=== PATIENT | male | born 1945 | race Caucasian/White ===

== ENCOUNTER 2016-07-02 05:59 | Inpatient (IN) | payer MEDICARE ==
[2016-07-02] MEDS ORDERED: MORPHINE SULFATE 15 MG TABLET.SA PO PRN (06:00)
[2016-07-02] MEDS ORDERED: ceFAZolin SODIUM 1 GM VIAL IV PRN (06:00)
[2016-07-02] MEDS ORDERED: ROPIVACAINE HCL/PF 100 MG, KETOROLAC TROMETHAMINE 30 MG, EPINEPHrine 0.2 MG in NORMAL S... IJ PRN (06:00)
[2016-07-02] MEDS ORDERED: TRANEXAMIC ACID 1,000 MG in NORMAL SALINE 100 ML IV PRN (06:00)
--- OUTSIDE RECORDS SUMMARY | 2016-07-02 06:04 | XMS REPORT | Continuity of Care Document ---
:1945 Author Organization [facility] ([facility]) Address [place] [address] Phone [phone] Care Team Providers Name Role Phone [phone], Self Referral Primary Care Provider [phone] Source Comments This disclosure is being made pursuant to the Care Everywhere program, applicable federal and state laws, and may not contain all informaitonavailable regarding this patient.[facility] ([facility]) Active Allergies and Adverse Reactions Allergen Noted Date Severity Reactions Comments Oxycodone-Acetaminophen 11/13/2015 Pruritus Current Medications Prescription Sig. Disp. Refills Start Date End Date Status losartan 100 mg tablet Take 100 mg by mouth Active daily. amLODIPine 2.5 mg tablet Take 2.5 mg by mouth Active daily. metFORMIN 500 mg tablet Take 500 mg by mouth Active 2 times daily with meals. celecoxib 200 mg capsule Take 200 mg by mouth Active 2 times daily. aspirin 325 mg tablet Take 325 mg by mouth Active daily. HYDROcodone-acetaminophe Take 1 capsule by Active n 5-500 mg per capsule mouth every 6 hours as needed. furosemide 40 mg tablet Take 40 mg by mouth Active daily. oxymetazoline 0.05% Use 2 Sprays into Active nasal spray both nostrils as needed. albuterol 90 Use 2 Puffs by Active mcg/Actuation inhaler inhalation every 6 hours as needed. MOMETASONE FUROATE Active (ASMANEX HFA INH) fexofenadine 180 mg Take 180 mg by mouth Active tablet daily. Active Problems Problem Noted Date Benign essential HTN 09/20/2013 PVD (peripheral vascular disease) Dyslipidemia Carotid occlusion, bilateral Social History Tobacco Use Types Packs/Day Years Used Date Current Every Day Smoker Cigarettes 1 Tobacco Cessation:Ready to Quit: No; Counseling Given: Yes Comments: Last Filed Vital Signs Vital Sign Reading Time Taken Blood Pressure 158/60 11/13/2015 9:48 AM CDT Pulse 64 11/13/2015 9:48 AM CDT Temperature - - Respiratory Rate 20 11/13/2015 9:48 AM CDT Height 1.778 m (5' 10") 11/13/2015 9:48 AM CDT Weight 129.729 kg (286 lb) 11/13/2015 9:48 AM CDT Body Mass Index 41.04 11/13/2015 9:48 AM CDT Oxygen Saturation - - Plan of Care Health Maintenance Due Date Last Done Comments HCV Screening 1945 Hepatitis B Vaccine (1 of 3 - Primary Series) 1945 Tdap Vaccine 1957 Lipid Disorder Screening 01/08/1964 Td Vaccine 01/08/1964 Colonoscopy 1996 Prostate Cancer Screening 01/08/1996 Zoster Vaccine 2006 Pneumococcal Vaccine (1 of 2 - PCV13) 2011 Influenza Vaccine: Seasonal (#1) 12/10/2015 Results from Last 3 Months Not on file
[2016-07-02] MEDS: RINGERS SOLUTION,LACTATED 1,000 ML IV PRN ×5 (06:30→23:21)
[2016-07-02] MEDS ORDERED: RINGERS SOLUTION,LACTATED 1,000 ML IV ONE (08:20)
[2016-07-02] MEDS ORDERED: HYDROmorphone HCL 1 MG/ML DISP.SYRIN IV PRN ×2 (09:42→10:21)
[2016-07-02] MEDS ORDERED: ACETAMINOPHEN 500 MG TABLET PO PRN (10:21)
[2016-07-02] MEDS ORDERED: ZOLPIDEM TARTRATE 5 MG TABLET PO PRN (10:21)
[2016-07-02] MEDS ORDERED: MAG HYDROX/ALUMINUM HYD/SIMETH 30 ML UDC PO PRN (10:21)
[2016-07-02] MEDS ORDERED: MAGNESIUM HYDROXIDE 30 ML UDC PO PRN (10:21)
[2016-07-02] MEDS ORDERED: ONDANSETRON HCL/PF 2 MG/ML VIAL IV PRN (10:21)
[2016-07-02] MEDS ORDERED: PROMETHAZINE HCL 5 MG in DEXTROSE 5 % IN WATER 50 ML IV PRN ×2 (10:21)
[2016-07-02] MEDS ORDERED: diphenhydrAMINE HCL 50 MG/ML VIAL IV PRN (10:21)
[2016-07-02] MEDS ORDERED: OXYMETAZOLINE HCL 150 SPRAY BTL NS PRN (10:22)
[2016-07-02] MEDS ORDERED: ALBUTEROL SULFATE 2.5 MG/0.5 ML VIAL.NEB IH PRN (10:22)
--- NOTE | 2016-07-02 10:27 | OR ---
Operative Report - Dictated Report Narrative: Date: 07/02/2016 Preoperative diagnosis: Left hip degenerative joint disease. Postoperative diagnosis: Left hip degenerative joint disease. Procedure: Left Total hip arthroplasty. Surgeon: Alfa Sheets M.D. Hearing Aid Assistant: Jeancarlos Sage PA-C Anesthesia: General after Spinal, and local periarticular joint injection. Complications: None Specimens: Bone for disposal. Estimated blood loss: 100 milliliters. Retained implants: Depuy [place] size 8 femoral stem high offset. Size 56 millimeter ouside diameter 3-hole [place] Gription acetabular cup. 56 millimeter outside by 40 millimeter inside diameter highly cross-linked acetabular liner. 40 millimeter diameter +5 millimeter cobalt chromium femoral head. Cancellous 6.5mm screw 30 millimeter length Indications: Mr. Almanza is a 71-year-old gentleman who has had long-standing left hip pain. This patient was followed in my clinic for period of time with significant complaints of left hip pain consistent with arthritic changes. He failed conservative measures including but not limited to activity modification , passage of time, medications, and other conservative measures. Patient wished to proceed with surgical treatment. The risks, benefits, and alternatives were discussed in clinic. The risks of , blood clots, bleeding, infection, nerve/tendon blood vessel/ injury, malposition of components, dislocation and/or instability of joint, intraoperative fracture, postoperative limited range of motion, persistent pain, failure of components, and need for additional procedures. Patient wished to proceed. Consent was obtained after answering all questions. Procedure: After marking the correct extremity on the floor, the patient was taken to the operating room. A timeout was performed. IV antibiotics consisting of Ancef were administered prior to the procedure. A spinal anesthetic was induced by anesthesia. Once he was placed in lateral position and prior to starting the procedure was noted that he is having some persistent sensation to his hip and thus a general anesthetic was then placed. A Murphy catheter was inserted. The patient was then transitioned to a lateral position on a well-padded pegboard. An axillary roll was placed. The head was in neutral position. The non-operative down leg was well-padded with SCD and TYRESE hose in place. The arms were supported and padded to protect from any undue pressure on the bony prominences and nerves. A well-padded anterior and posterior pelvic and chest posts were secured in order to maintain a stable position of the pelvis. This was placed so that the pelvis was perpendicular to the floor. The body was in line with the pelvis. Once it was felt that we had protected all the bony prominences and the patient was well secured with a safety belt as well, the leg was pre-scrubbed with alcohol, prepped and draped in a standard sterile fashion. A standard anterior lateral hip incision was marked out over the greater trochanter. Ioban drapes were then placed. The skin incision was then made. Sharp dissection with a scalpel utilizing cautery for hemostasis was carried out down to the gluteus and iliotibial band fascia. This was split in line with the skin incision. The greater trochanter bursa was excised. The anterior and posterior margins of the abductor tendon were identified. The anterior 1/2-1/3 of the tendon was tagged and reflected off the greater trochanter leaving a sleeve of tendon for repair at the completion of the case. This exposed the underlying hip joint capsule. A limb length stitch was placed in the skin and referencedd off a pao on the greater trochanter for evaluation of intraoperative limb lengths. An inverted T-type capsulotomy was made extending this up to the brim of the acetabulum. Using Homans to assist with elevation of the soft tissues off the anterior, superior, and inferior aspects of the femoral neck, the hip was then placed in a figure 4 position and the femoral head was dislocated. With the leg in an externally rotated and adducted position, the cutting flag was utilized in order to pao for a standard femoral neck cut approximately a fingerbreadth above the level of the lesser trochanter. This was done with reference to pre-operative films and overall alignment. This was done while protecting the surrounding soft tissues with Homans. The femoral head was then removed and sized for guidance on preparation of the acetabulum. It was noted that there was loss of articular cartilage on both the femoral head and weightbearing portions of the acetabulum. We then returned the leg to the table and turned our attention to the acetabulum. While protecting the surrounding soft tissues, the labrum and remaining tissue in the fovea were excised using a scalpel and cautery. A series of reamers up to size 56 millimeter were utilized to prepare the acetabulum. The final reamer had good purchase and exposed the bleeding subchondral bone. The acetabulum was then thoroughly irrigated ensuring that all bony and cartilaginous materials were removed, and the final acetabular shell was impacted into place. This was placed in approximately 45 degrees of abduction and 20 degrees of anteversion utilizing the outrigger and body axis for alignment. This had a good press fit. 1 6.5mm cancellous screw was placed in the superior posterior quadrant of the acetabulum. The shell was then thoroughly irrigated and the final polyethylene was impacted into place ensuring that it seated completely. This was then protected with a sponge while we returned our attention to the femur. With the leg in a figure 4 position, utilizing Homans for soft tissue protection , a box cutting osteotome, followed by Charnley awl, followed by serial reamers and broaches were utilized in order to prepare the femur. It was found that a size 8 broach gave good axial and rotational stability. The calcar reamer was utilized in order to clean up the cut edges. The proximal femur was visualized to ensure that there were no signs of fracture. A series of heads and necks were trialed. It was found that a high offset neck and a + 5 femoral head gave good overall stability. There was minimal longitudinal instability. With the leg in the position of sleep, the femoral head was well covered. Hip range of motion was able to reach full extension and external rotation to greater than 75 degrees prior to impingement along the posterior acetabulum. The hip was able to be flexed to greater than 90 degrees with internal rotation greater than 60 degrees prior to anterior impingement. The limb lengths were near equal based on comparison to the contralateral side and the prior placed limb length stitch. At this point it was felt these were the appropriately sized femoral components as well as neck and femoral head. The trial implants were removed. The femur was thoroughly irrigated. The final implants were impacted into place, and the hip was reduced. After ensuring that there was no damage to the proximal femur , the standard periarticular joint injection of ropivacaine, Toradol, and epinephrine were injected into the joint capsule and surrounding soft tissues. Anesthesia then administered intravenous tranexamic acid. The capsule was repaired with a single interrupted #1 Vicryl. The abductor tendon was repaired to the greater trochanter utilizing #5 Ethibond through drill holes. This was oversewn with #1 Vicryl. The fascia was closed with interrupted #1 Vicryl. The wounds were thoroughly irrigated as we closed in layers. The deep and subcutaneous fat layers were closed with 0 and 3-0 Vicryl respectively. The subcutaneous tissue was closed with a running 3-0 Vicryl and a subcutaneous 3-0 Monocryl with a prineo Dermabond closure on the skin. All sponge, needle, blade , and instrument counts were correct prior to closing the wounds. Sterile dressings consisting of 4 x 4's and tape were applied. The patient was awoken and transferred to her hospital bed and then to the postanesthesia care unit in stable condition. Postoperative condition: The plan is to admit to the medical/surgical inpatient floor postoperatively. There will be a projected 2 to 4 day hospital stay. Postoperatively 24 hours of IV antibiotics, pain control, physical therapy, occupational therapy, and medical comanagement will be utilized. Patient will be weightbearing as tolerated with anterior hip precautions. Postoperative films will be obtained in the recovery room.
[2016-07-02] MEDS: KETOROLAC TROMETHAMINE 15 MG/ML VIAL IV SCH ×3 (11:31→23:15)
[2016-07-02] MEDS: ceFAZolin SODIUM 1 GM in DEXTROSE 5 % IN WATER 100 ML IV SCH ×4 (14:26→19:23)
[2016-07-02] MEDS: oxyCODONE HCL/ACETAMINOPHEN 1 TAB TABLET PO PRN ×2 (14:34→19:19)
[2016-07-02] MEDS: diphenhydrAMINE HCL 25 MG CAPSULE PO PRN ×2 (14:35→19:20)
--- NOTE | 2016-07-02 16:37 | PN ---
Subjective - Date and Time Seen Date: 07/02/16 Time: 16:25 Subjective Narrative: Pt. without complaint. States pain has been ok, though increasing some. Denies any issues with the HR being slow - no CP/SOB/light headedness. States is coughing a little and has noted a little wheezing. Objective - Review of Systems Generalized/Overall Review: Reports: No Symptoms Reported EENTM: Reports: No Symptoms Reported Respiratory: Reports: Cough. Denies: Shortness of Breath Cardiac: Denies: Chest Pain, Palpitations, Syncope Abdominal: Denies: Nausea, Vomiting Genitourinary Symptoms: Reports: No Symptoms Reported Musculoskeletal Complaints: Reports: Joint Pain - is controlled Neurological: Reports: No Symptoms Reported Skin: Reports: No Symptoms Reported Endocrine: Reports: No Symptoms Reported - Vitals Vitals: Last Vital Signs Temp 36.4 C L 07/02/16 11:26 Pulse 44 L 07/02/16 11:45 Resp 12 07/02/16 11:26 BP 102/57 07/02/16 11:26 Pulse Ox 91 07/02/16 11:26 - EKG/Xray Findings EKG: prolonged QT interval, other - bradycardia 50's while I was in room, but reported as low as in the 30's. Has Type 2 Wenckebach - 2nd degree heart block on telemetry - Exam Exam Narrative: Speech is somewhat purposeful and slow - consistent with anesthesia effects. Constitutional: Present: Alert, Oriented x3, Cooperative, No distress, Morbidly obese ENT Exam: Present: hearing grossly normal Neck: Present: supple Respiratory: Present: no respiratory distress, no accessory muscle use, wheezing , expiration (prolonged) Cardiovascular/Chest: Present: bradycardia, systolic murmur Abdomen: Present: Normal bowel sounds, nontender, nondistended, no rebound tenderness, no hepatospenomegaly, obese Extremity: Present: no calf tenderness, lower extremity edema - mild juan carlos Skin Exam: Present: normal color Neurologic: Present: normal mood/affect, oriented x 3 Appearance: Present: appropriate appearance, appropriate insight, neat, no memory impairment Eye contact: Present: cooperative, good eye contact, decreased rate of speech Thoughts: Present: normal thought pattern, no apparent hallucination Cauti Physician Documentation - Urinary Catheter Management Urethral (Murphy) Urethral Indwelling: Yes Reason for Continuing Indwelling Catheter: Surgical Procedure Date of Insertion: 07/02/16 Time of Insertion: 08:15 Assessment/Plan - Problems/Diagnosis (1) Abigail second degree AV block Problem: Acute Narrative: could be result of him being on zpak recently so added this to his allergy list. Will monitor for now. Pt. is asymptomatic so no interventions I believe are needed at this time, especially if his heart rate maintains itself in the 50 's. (2) COPD (chronic obstructive pulmonary disease) Problem: Acute Qualifiers: COPD type: unspecified COPD Qualified Code(s): J44.9 - Chronic obstructive pulmonary disease, unspecified Narrative: with wheezes currently. Will do cornet and scheduled albuterol nebs while awake , q4hrs hs prn wheezing or SOB. (3) Diabetes Problem: Acute Qualifiers: Diabetes mellitus type: type 2 Diabetes mellitus complication status: without complication Diabetes mellitus technician terminal and repeater insulin use: without technician terminal and repeater use Qualified Code(s): E11.9 - Type 2 diabetes mellitus without complications Narrative: will do consistent carb diet, continue his current meds, add low dose SSI to cover any hyperglycemia he might have, trying to maintain tighter control in the mid 150's, though his last A1C was very good. (4) Hypertension Problem: Acute Qualifiers: Hypertension type: essential hypertension Qualified Code(s): I10 - Essential (primary) hypertension Narrative: stable, follow for now. no med changes. (5) Status post total hip replacement, left Problem: Acute Narrative: rehab per ortho (6) Discharge planning issues Problem: Acute Narrative: anticipate him being able to go home fairly quick, but this is up to ortho and how he does with any other medical issues.
[2016-07-02] MEDS: metFORMIN HCL 500 MG TABLET PO SCH (17:34)
[2016-07-02] MEDS: INSULIN REGULAR, HUMAN 100 UNITS/ML VIAL SC SCH ×2 (17:35→21:04)
[2016-07-02] MEDS: ALBUTEROL SULFATE 2.5 MG/0.5 ML VIAL.NEB IH SCH ×2 (18:58→23:23)
[2016-07-02] MEDS: BUDESONIDE 0.5 MG/2 ML VIAL.NEB IH PRN (19:00)
[2016-07-02] MEDS: MORPHINE SULFATE 15 MG TABLET.SA PO SCH (20:49)
[2016-07-02] MEDS: DOCUSATE SODIUM 100 MG CAPSULE PO SCH (20:49)
[2016-07-02] MEDS: SENNOSIDES/DOCUSATE SODIUM 1 TAB TABLET PO SCH (20:50)
[2016-07-02] MEDS: FLUTICASONE PROPIONATE 120 SPRAY INHALER NS SCH (20:51)
[2016-07-03] MEDS: ceFAZolin SODIUM 1 GM in DEXTROSE 5 % IN WATER 100 ML IV SCH ×2 (02:12)
[2016-07-03] MEDS: ALBUTEROL SULFATE 2.5 MG/0.5 ML VIAL.NEB IH SCH ×6 (03:18→23:15)
[2016-07-03] MEDS: KETOROLAC TROMETHAMINE 15 MG/ML VIAL IV SCH ×4 (04:46→23:11)
[2016-07-03 05:24] LABS: Hematocrit 37.8 % (42.0-52.0); Hemoglobin 11.9 gm/dL (13.5-18.0); Mean Cell Volume 80.6 fl (78-100); Mean Corpuscular Hemoglobin 25.4 pg (27-31); Mean Corpuscular Hgb Conc 31.5 g/dl (32-36); Mean Platelet Volume 12.6 fl (6.0-9.5); Platelet Count 194 K/mm3 (150-450); Red Blood Count 4.69 M/mm3 (4.7-6.0); White Blood Count 14.5 K/mm3 (4.0-10.5)
[2016-07-03 05:43] LABS: Anion Gap 14.5 mmol/L (6.8-13.8); BUN/Creatinine Ratio 20.2 (9.0-21.6); Calcium * 8.3 mg/dL (7.9-10.9); Estimated Creat Clear 69.2; Potassium 4.5 mmol/L (3.4-4.6)
[2016-07-03] MEDS: BUDESONIDE 0.5 MG/2 ML VIAL.NEB IH PRN (06:09)
--- NOTE | 2016-07-03 06:51 | PN ---
Subjective - Date and Time Seen Date: 07/03/16 Time: 06:47 Subjective Narrative: No complaints this am. He feels the breathing tx are helping and he is using his cornet. He denies CP/SOB, light headedness. Pain is 5/10. Katherine just removed this am. Objective - Review of Systems Generalized/Overall Review: Reports: No Symptoms Reported EENTM: Reports: No Symptoms Reported Respiratory: Reports: No Symptoms Reported Cardiac: Reports: No Symptoms Reported Abdominal: Reports: No Symptoms Reported, Bright blood from rectum Musculoskeletal Complaints: Reports: Joint Pain Neurological: Reports: No Symptoms Reported Skin: Reports: No Symptoms Reported Endocrine: Reports: No Symptoms Reported - Vitals Vitals: Last Vital Signs Temp 36.7 C 07/03/16 00:56 Pulse 55 L 07/03/16 06:18 Resp 18 07/03/16 06:18 BP 130/78 07/03/16 05:00 Pulse Ox 96 07/03/16 06:08 - Abnormal Lab Findings Abnormal Lab Findings: Abnormal Lab Results 07/03/16 07/03/16 Range/Units 05:04 05:04 WBC 14.5 H (4.0-10.5) K/mm3 RBC 4.69 L (4.7-6.0) M/mm3 Hgb 11.9 L (13.5-18.0) gm/dL Hct 37.8 L (42.0-52.0) % MCH 25.4 L (27-31) pg MCHC 31.5 L (32-36) g/dl RDW 17.0 H (11.5-14.0) % MPV 12.6 H (6.0-9.5) fl [place]ion [place] 14.5 H (6.8-13.8) mmol/L Random Glucose 139 H (70-110) mg/dL - EKG/Xray Findings EKG: prolonged QT interval, other - still with Wencebach pattern at times, but heart rate is coming up and currently shows bradycardia with 1st degree AV block. - Exam Constitutional: Present: Alert, Oriented x3, Cooperative, No distress, Morbidly obese ENT Exam: Present: hearing grossly normal Neck: Present: supple Respiratory: Present: no respiratory distress, no accessory muscle use, wheezing - greatly improved from yesterday., expiration (prolonged) Cardiovascular/Chest: Present: no murmur, bradycardia, other - regularly irregular pattern. Abdomen: Present: Normal bowel sounds, soft, nontender, no rebound tenderness, no hepatospenomegaly, obese Extremity: Present: no calf tenderness, normal capillary refill Skin Exam: Present: normal color Neurologic: Present: normal mood/affect, oriented x 3 Appearance: Present: appropriate appearance, appropriate insight, neat Eye contact: Present: cooperative, good eye contact, normal speech Thoughts: Present: normal thought pattern, no apparent hallucination Cauti Physician Documentation - Urinary Catheter Management Urethral (Murphy) Urethral Indwelling: No Date of Insertion: 07/02/16 Time of Insertion: 08:15 Date of Removal: 07/02/16 Time of Removal: 17:57 Assessment/Plan - Problems/Diagnosis (1) Abigail second degree AV block Problem: Acute Narrative: improving. still having some rhythms of it, but overall looking more like a 1st degree block. Believe this is secondary to the zithromax and should continue to improve as this med gets out of his system. (2) COPD (chronic obstructive pulmonary disease) Problem: Acute Qualifiers: COPD type: unspecified COPD Qualified Code(s): J44.9 - Chronic obstructive pulmonary disease, unspecified Narrative: better with neb tx. will continue these q4hrs awake and his cornet. (3) Diabetes Problem: Acute Qualifiers: Diabetes mellitus type: type 2 Diabetes mellitus complication status: without complication Diabetes mellitus prison insulin use: without prison use Qualified Code(s): E11.9 - Type 2 diabetes mellitus without complications Narrative: sugars running a little higher than I would like so will move up to moderate SSI. continue consistent carb diet. (4) Hypertension Problem: Acute Qualifiers: Hypertension type: essential hypertension Qualified Code(s): I10 - Essential (primary) hypertension Narrative: stable, continue norvasc and losartan. (5) Status post total hip replacement, left Problem: Acute Narrative: rehab and discharge planning per ortho. (6) Discharge planning issues Problem: Acute Narrative: per ortho. pt. is medically stable and improving, so should be ok to go home at least by tomorrow.
[2016-07-03] MEDS: INSULIN REGULAR, HUMAN 100 UNITS/ML VIAL SC SCH ×4 (07:40→20:40)
[2016-07-03] MEDS: oxyCODONE HCL/ACETAMINOPHEN 1 TAB TABLET PO PRN ×3 (08:20→19:06)
[2016-07-03] MEDS: diphenhydrAMINE HCL 25 MG CAPSULE PO PRN ×2 (08:20→19:07)
[2016-07-03] MEDS: ENOXAPARIN SODIUM 40 MG/0.4 ML SYRG SC SCH (08:31)
[2016-07-03] MEDS: FLUTICASONE PROPIONATE 120 SPRAY INHALER NS SCH ×2 (08:31→20:40)
[2016-07-03] MEDS: LORATADINE 10 MG TABLET PO SCH (08:32)
[2016-07-03] MEDS: FUROSEMIDE 40 MG TABLET PO SCH (08:33)
[2016-07-03] MEDS: amLODIPine BESYLATE 5 MG TABLET PO SCH (08:34)
[2016-07-03] MEDS: metFORMIN HCL 500 MG TABLET PO SCH ×2 (08:35→16:53)
[2016-07-03] MEDS: LOSARTAN POTASSIUM 50 MG TABLET PO SCH (08:36)
[2016-07-03] MEDS: MORPHINE SULFATE 15 MG TABLET.SA PO SCH ×2 (08:40→20:40)
[2016-07-03] MEDS: SENNOSIDES/DOCUSATE SODIUM 1 TAB TABLET PO SCH (20:41)
[2016-07-03] MEDS: DOCUSATE SODIUM 100 MG CAPSULE PO SCH (20:41)
[2016-07-04] MEDS: ALBUTEROL SULFATE 2.5 MG/0.5 ML VIAL.NEB IH SCH ×3 (03:25→10:43)
[2016-07-04] MEDS: KETOROLAC TROMETHAMINE 15 MG/ML VIAL IV SCH (05:11)
[2016-07-04 06:01] LABS: Hematocrit 35.6 % (42.0-52.0); Hemoglobin 11.2 gm/dL (13.5-18.0); Mean Cell Volume 80.4 fl (78-100); Mean Corpuscular Hemoglobin 25.3 pg (27-31); Mean Corpuscular Hgb Conc 31.5 g/dl (32-36); Mean Platelet Volume 11.9 fl (6.0-9.5); Platelet Count 161 K/mm3 (150-450); Red Blood Count 4.43 M/mm3 (4.7-6.0); Red Cell Distribution Width 17.2 % (11.5-14.0); White Blood Count 10.1 K/mm3 (4.0-10.5)
[2016-07-04 06:15] LABS: Anion Gap 12.3 mmol/L (6.8-13.8); Carbon Dioxide 24.1 mmol/L (24-32.6); Potassium 4.4 mmol/L (3.4-4.6)
[2016-07-04] MEDS: INSULIN REGULAR, HUMAN 100 UNITS/ML VIAL SC SCH ×2 (06:54→11:26)
--- NOTE | 2016-07-04 07:03 | PN ---
Subjective - Date and Time Seen Date: 07/04/16 Time: 06:57 Subjective Narrative: Pt. without complaint this am. Had BM this am. Denies any light headedness with standing or ambulating. Nurse reports a little spot on the dressing this am, patient has no complaints. Objective - Review of Systems Generalized/Overall Review: Reports: No Symptoms Reported EENTM: Reports: No Symptoms Reported Respiratory: Reports: No Symptoms Reported Cardiac: Reports: No Symptoms Reported Abdominal: Reports: No Symptoms Reported Genitourinary Symptoms: Reports: No Symptoms Reported Musculoskeletal Complaints: Reports: Joint Pain - minimal and ambulating well. Neurological: Reports: No Symptoms Reported Skin: Reports: No Symptoms Reported Endocrine: Reports: No Symptoms Reported - Vitals Vitals: Last Vital Signs Temp 36.9 C 07/04/16 03:39 Pulse 49 L 07/04/16 03:39 Resp 18 07/04/16 03:39 BP 138/62 07/04/16 03:39 Pulse Ox 95 07/04/16 03:39 - Abnormal Lab Findings Abnormal Lab Findings: Abnormal Lab Results 07/04/16 07/04/16 Range/Units 05:11 05:11 RBC 4.43 L (4.7-6.0) M/mm3 Hgb 11.2 L (13.5-18.0) gm/dL Hct 35.6 L (42.0-52.0) % MCH 25.3 L (27-31) pg MCHC 31.5 L (32-36) g/dl RDW 17.2 H (11.5-14.0) % MPV 11.9 H (6.0-9.5) fl Chloride 107 H (97-106) mmol/L BUN/Creatinine Ratio 22.0 H (9.0-21.6) - EKG/Xray Findings EKG: other - bradycardia with 1st degree AV block. EKG read: Reviewed by me - Exam Constitutional: Present: Alert, Oriented x3, Cooperative, No distress, Morbidly obese ENT Exam: Present: hearing grossly normal Neck: Present: supple Respiratory: Present: lungs clear, normal breath sounds, no respiratory distress , no accessory muscle use Cardiovascular/Chest: Present: regular rate, rhythm, no murmur Abdomen: Present: Normal bowel sounds, soft, nontender Skin Exam: Present: normal color Neurologic: Present: normal mood/affect, oriented x 3 Appearance: Present: appropriate appearance, appropriate insight, neat Eye contact: Present: cooperative, good eye contact, normal speech Thoughts: Present: normal thought pattern, no apparent hallucination Cauti Physician Documentation - Urinary Catheter Management Urethral (Murphy) Urethral Indwelling: No Date of Insertion: 07/02/16 Time of Insertion: 08:15 Date of Removal: 07/02/16 Time of Removal: 17:57 Assessment/Plan - Problems/Diagnosis (1) Wenckebach second degree AV block Problem: Acute Narrative: appears to be resolved. could be paroxysmal based on pt. history or could be related to zithromax recently taken and now getting out of his system. Patient is without sx and is therefore stable to go home at any time. (2) COPD (chronic obstructive pulmonary disease) Problem: Acute Qualifiers: COPD type: unspecified COPD Qualified Code(s): J44.9 - Chronic obstructive pulmonary disease, unspecified Narrative: doing well with the nebs. d/w pt. to be sure to use his asmanex daily at home ( he uses it prn) and then use his ventolin prn cough/SOB. Also discussed with him trying to further reduce if not quit smoking as this will help his lungs as well as the healing of his hip. 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 no changes in his current meds. (4) Hypertension Problem: Acute Qualifiers: Hypertension type: essential hypertension Qualified Code(s): I10 - Essential (primary) hypertension Narrative: BP's overall are stable, continue norvasc and losartan unchanged. (5) Status post total hip replacement, left Problem: Acute Narrative: rehab and discharge home per ortho. (6) Discharge planning issues Problem: Acute Narrative: patient is medically stable and can be discharged home when ready per ortho.
[2016-07-04] MEDS: BUDESONIDE 0.5 MG/2 ML VIAL.NEB IH PRN (07:28)
[2016-07-04] MEDS: oxyCODONE HCL/ACETAMINOPHEN 1 TAB TABLET PO PRN (08:34)
[2016-07-04] MEDS: diphenhydrAMINE HCL 25 MG CAPSULE PO PRN (08:34)
[2016-07-04] MEDS: ENOXAPARIN SODIUM 40 MG/0.4 ML SYRG SC SCH (08:36)
[2016-07-04] MEDS: LORATADINE 10 MG TABLET PO SCH (08:38)
[2016-07-04] MEDS: LOSARTAN POTASSIUM 50 MG TABLET PO SCH (08:38)
[2016-07-04] MEDS: FLUTICASONE PROPIONATE 120 SPRAY INHALER NS SCH (08:39)
[2016-07-04] MEDS: metFORMIN HCL 500 MG TABLET PO SCH (08:40)
[2016-07-04] MEDS: FUROSEMIDE 40 MG TABLET PO SCH (08:40)
[2016-07-04] MEDS: amLODIPine BESYLATE 5 MG TABLET PO SCH (08:41)
[2016-07-04] MEDS: MORPHINE SULFATE 15 MG TABLET.SA PO SCH (09:03)
[2016-07-04 10:54] VITALS: BP 117/49
--- NOTE | 2016-07-04 13:06 | DS ---
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 Almanza was admitted to the floor after undergoing left total hip arthroplasty. Tolerated this well. Was admitted to the floor postoperatively for 24 hours of IV antibiotics, pain control, medical comanagement, and occupational and physical therapy. OT and PT were consulted to assist with activities of daily living and ambulation. Was made weightbearing as tolerated with anterior hip precautions. Pain was initially controlled with IV regimen. This was transitioned to oral once tolerating a by mouth intake. Was resumed on home diet and medications. Had a Murphy catheter inserted and the operating room which was discontinued on postoperative day 1. Lovenox SCD and TYRESE hose were utilized for DVT prophylaxis. Vital signs remained stable to the hospital course. Serial labs were obtained which showed a final hemoglobin of 11.2 grams. BMP was reviewed and was stable. Physical examination throughout the hospital course showed an extremity that had sensation that was intact to light touch, palpable pulses, a benign wound, motor intact to the toes, ankle, and knee. Once an oral pain regimen was tolerated and physical therapy goals were met, it was felt that they were stable for discharge to home. Instructions: Continue with weightbearing as tolerated and anterior hip precautions. Okay to shower wound. Cover with dry gauze and tape. Change every 2-3 days as needed. Cover wound while showering. Continue with physical therapy. Resume home diet. Report any fever over 101.5 Fahrenheit, uncontrolled pain, increased drainage, foul odor of drainage, new or increased calf pain or shortness of breath, or any other significant complaints. A 325mg dialy aspirin will be started after finishing anticoagulation if not allergic. Continue with TYRESE hose on the operative extremity until instructed otherwise. No driving until instructed otherwise. Follow up in approximately 10-14 days. Procedures Performed: see notes below List Procedures: Left total hip arthroplasty Discharge Disposition: Home self care Disposition: Home self-care Condition: Good Discharge Activity: Weight bearing, Other - anterior hip precautions no active abduction Discharge Diet: Consistent carbs Snf Therapy: Physicial Therapy Referrals: Berto Loja MD [Primary Care Provider] - Additional Patient Instructions (free text): Follow up outpt physical thearpy at [facility] on ThursdayJuly 09 @ 8:30 a.m. Follow-up in the office with Dr. Sheets on 07-17-16@9:45am. Prescriptions (Any new or edited meds): Enoxaparin Sodium [Lovenox] 40 mg SC Q24H #7 disp.syrin Morphine Sulfate [Ms Contin] 15 mg PO Q12H #20 tablet.sa oxyCODONE HCL/ACETAMINOPHEN [Percocet 5 MG/325 MG] 2 tab PO Q4H PRN #90 tablet PRN Reason: Moderate Pain Complete Home Medications List: Complete Home Medication List: Albuterol Sulfate [Ventolin Hfa] 2 puff IH Q4H PRN 06/05/12 Aspirin [Ecpirin] 325 mg PO DAILY 06/05/12 Furosemide [Lasix] 40 mg PO DAILY 06/05/12 Losartan Potassium 100 mg PO DAILY 06/05/12 Mometasone Furoate [Asmanex] 1 puff IH HS PRN 06/05/12 Oxymetazoline HCl [Afrin] 2 spray NS BID PRN 06/05/12 Amlodipine Besylate [Norvasc] 2.5 mg PO DAILY 06/13/16 Blood-Glucose Meter [Blood Glucose Monitoring] 1 each MC DAILY 06/13/16 Celecoxib [Celebrex] 200 mg PO BID 06/13/16 Fluticasone Propionate [Flonase Allergy Relief] 2 spray NS BID 06/13/16 metFORMIN HCL [Glucophage] 500 mg PO BIDWM 06/13/16 Docusate Sodium [Stool Softener] 100 mg PO HS 07/02/16 Fexofenadine HCl [Stacy Allergy] 180 mg PO DAILY 07/02/16 diphenhydrAMINE HCL [Benadryl] 25 mg PO QID PRN 07/02/16 Enoxaparin Sodium [Lovenox] 40 mg SC Q24H #7 disp.syrin 07/04/16 Insulin Regular, Human [Humulin R] 0 units SC ACHSINS vial 07/04/16 Morphine Sulfate [Ms Contin] 15 mg PO Q12H #20 tablet.sa 07/04/16 Sennosides/Docusate Sodium [Senokot-S] 2 tab PO HS tablet 07/04/16 oxyCODONE HCL/ACETAMINOPHEN [Percocet 5 MG/325 MG] 2 tab PO Q4H PRN #90 tablet 07/04/16
== END 2016-07-04 14:00 | disposition home or self-care (01) | DRG 470 ==
LOC: MS 05:59
PROVIDERS: ADMIT Orthopaedic Surgery; ATTEND Orthopaedic Surgery
PROC: 0SRB0JZ Replacement of Left Hip Joint with Synthetic Substitute, Open Approach (ICD-10-PCS; principal; 2016-07-02 08:00)
DX: M16.0 Bilateral primary osteoarthritis of hip (principal); D62 Acute posthemorrhagic anemia; M70.62 Trochanteric bursitis, left hip; E11.9 Type 2 diabetes mellitus without complications; J44.9 Chronic obstructive pulmonary disease, unspecified; I10 Essential (primary) hypertension; I44.1 Atrioventricular block, second degree; T36.3X5A Adverse effect of macrolides, initial encounter; Y92.009 Unspecified place in unspecified non-institutional (private) residence as the place of occurrence of the external cause; F17.210 Nicotine dependence, cigarettes, uncomplicated; Z79.82 Long term (current) use of aspirin

== ENCOUNTER 2016-12-01 06:03 | Inpatient (IN) | payer MEDICARE ==
[~2016-12-01 06:03] MED LIST: MORPHINE SULFATE 15 MG TABLET.SA PO PRN; ROPIVACAINE HCL/PF 100 MG, EPINEPHrine 0.2 MG, KETOROLAC TROMETHAMINE 30 MG in NORMAL S... IJ PRN; TRANEXAMIC ACID 1,000 MG in NORMAL SALINE 100 ML IV PRN; ceFAZolin SODIUM 1 GM VIAL IV PRN
[2016-12-01] MEDS: RINGER'S SOLUTION,LACTATED 1,000 ML IV PRN ×3 (06:30→21:27)
[2016-12-01] MEDS ORDERED: ALBUTEROL SULFATE 2.5 MG/3 ML VIAL.NEB IH PRN ×2 (07:15→10:19)
[2016-12-01] MEDS ORDERED: RINGER'S SOLUTION,LACTATED 1,000 ML IV ONE (08:10)
[2016-12-01] MEDS ORDERED: RINGER'S SOLUTION,LACTATED 1,000 ML IV PRN (10:17)
[2016-12-01] MEDS ORDERED: ZOLPIDEM TARTRATE 5 MG TABLET PO PRN (10:17)
[2016-12-01] MEDS ORDERED: ACETAMINOPHEN 500 MG TABLET PO PRN (10:17)
[2016-12-01] MEDS ORDERED: PROMETHAZINE HCL 5 MG in DEXTROSE 5 % IN WATER 50 ML IV PRN ×2 (10:17)
[2016-12-01] MEDS ORDERED: MAGNESIUM HYDROXIDE 30 ML UDC PO PRN (10:17)
[2016-12-01] MEDS ORDERED: HYDROmorphone HCL 1 MG/ML DISP.SYRIN IV PRN (10:17)
[2016-12-01] MEDS ORDERED: diphenhydrAMINE HCL 50 MG/ML VIAL IV PRN (10:17)
[2016-12-01] MEDS ORDERED: MAG HYDROX/ALUMINUM HYD/SIMETH 30 ML UDC PO PRN (10:17)
[2016-12-01] MEDS ORDERED: OXYMETAZOLINE HCL 150 SPRAY BTL NS PRN (10:19)
[2016-12-01] MEDS ORDERED: diphenhydrAMINE HCL 25 MG CAPSULE PO PRN (10:19)
--- NOTE | 2016-12-01 10:24 | OR ---
Operative Report - Dictated Report Narrative: Date: 12/01/2016 Preoperative diagnosis: Left Knee degenerative joint disease. Postoperative diagnosis: Left Knee degenerative joint disease. Procedure: Left Total knee arthroplasty. Surgeon: Alfa Sheets M.D. Cocoa Mill Operator: Jeancarlos Sage PA-C Anesthesia: Spinal with regional block and local periarticular joint injection. Complications: None Specimens: Bone for disposal. Estimated blood loss: Minimal. Tourniquet time: 90 Minutes at 350 millimeters of mercury. Retained implants: Depuy Attune size 8 left lugged cemented posterior stabilized femoral component. Size 8 fixed-bearing cemented tibial platform. 8 by 10 millimeter posterior stabilized cross-linked tibial insert. 41 millimeter medialized patella button. Indications: Mr. Almanza is a 71-year-old gentleman who has had long-standing left knee pain. This patient was followed in my clinic for period of time with significant complaints of left knee pain consistent with arthritic changes. He had failed conservative measures including, but not limited to, activity modification, passage of time, medications, and other conservative measures. Patient wished to proceed with surgical treatment. The risks, benefits, and alternatives were discussed in clinic. The risks of , blood clots, bleeding, infection, nerve/tendon blood vessel/ injury, malposition of components, intraoperative fracture, postoperative limited range of motion, persistent pain, failure of components, and need for additional procedures. Patient wished to proceed consent was obtained after answering all questions. Procedure: After marking the correct extremity on the floor, the patient was taken to the operating room. A timeout was performed. IV antibiotics consisting of Ancef were administered prior to the procedure. A regional followed by spinal anesthetic was induced by anesthesia, per my request, on the operative table with all bony prominences well-padded. Murphy catheter was placed, and a bump was placed under the operative side buttock. SCDs and TYRESE hose were utilized on the nonoperative leg. A well-padded tourniquet was applied to the operative thigh. The operative leg was then pre-scrubbed with alcohol prepped, and draped in a standard sterile fashion. After exsanguinating the extremity with an Esmarch bandage, the tourniquet was inflated. After marking out the anterior knee for standard incision centered over the patella, the skin was incised and dissected down to the joint retinaculum. The joint retinaculum was marked out as well as the horizontal axis of the patella, and a standard medial parapatellar arthrotomy was then made. The most proximal aspect of the quadriceps tendon and the patella tendon insertion were protected from release. A partial synovectomy was performed as well as a resection of the infrapatellar fat pad. The distal femoral fat pad proximal to the trochlea was also resected using cautery. The soft tissues were elevated off the medial aspect of the proximal tibia using a Banerjee elevator ensuring that we did not transect the medial collateral ligament. Upon initial evaluation range of motion was approximately 0 degrees to 110 degrees of flexion. There were signs of advanced arthrosis in the medial, lateral, and patellofemoral joint spaces. There were large marginal osteophytes which were removed with a rongeur. The knee was hyperflexed and the patella was tucked laterally. Protecting the surrounding soft tissues with Homans, an entry drill was placed down the femoral canal using Whitesides line for guidance into the entry point. The intramedullary femoral alignment alida was utilized in order to cut the distal femur in 5 degrees of valgus resecting 10 millimeters of bone. Next the distal femur was sized to a size 8. A posterior referencing guide was utilized to place the distal femoral cutting block in 3 degrees of external rotation. This was pinned into place. The rotation was confirmed both visually and based on anatomic landmarks. The 4 in 1 cutting jig of the appropriate size was utilized in order to make all bony cuts. The angle wing was used to ensure no notching. Retractors were utilized in order to protect surrounding soft tissues. This cut did not result in any excessive notching. We then cut the box centered over the distal femur. This allowed for resection of the anterior and posterior cruciate ligaments. I then turned my attention to the preparation of the tibia. Using an extra medullary tibial alignment alida, 3 millimeters of bone was resected off the medial articular surface. This was made perpendicular to the mechanical axis of the joint with the alignment alida centered over the ankle mortise. The alignment alida was checked and was noted to be parallel to the mechanical axis, centered over the medial one third of the tibial tubercle, paralleling the anterior surface of the tibia. We then turned our attention to the remaining meniscus and soft tissues. These were removed while protecting the surrounding ligaments and soft tissues. The marginal osteophytes off the anterior, posterior, medial, lateral aspects of the femur and tibia were removed. The tibia was sized out to a size 8. Next the tibia was drilled and punched in an externally rotated position. Next the trial femur and a series of tibial inserts were utilized in order to allow for full extension and maximal flexion. It was found that a 10 millimeter insert gave the best range of motion and stability at multiple flexion points as well as at full extension there was less than 2 mm of gapping both medially and laterally. There is minimal anterior translation with the knee at 90 degrees of flexion and no signs of being able to dislocate the knee. The patella was then prepared. The initial thickness was 26 millimeters. This was reamed down to 16 millimeters parallel to the anterior surface of the patella. It was sized out to a size 41 medialized patella button. This was then drilled and trialed. Without any medial restraint the patella tracked appropriately and did not sublux or dislocate. At this point, it was felt these were the appropriate sized implants, and all trials were removed. The standard periarticular joint injection consisting of ropivacaine, Toradol, and epinephrine were injected into the periarticular joint tissues. The bony surfaces were thoroughly irrigated with a pulsatile- suction saline irrigation device. A bone plug from the prior resected anterior chamfer cut was placed into the drill hole at the distal femur. The bony surfaces were then dried in preparation for placement of the implants. The cement was vacuum mixed per the business strategy manager's instructions. The cement was placed on the dry bony surfaces and posterior aspect of the implants. The implants were impacted into place, removing all extruded cement. At this point anesthesia administered tranexamic acid per protocol intravenously. The knee was placed in extension with axial loading with the trial insert while the cement cured. Once the cement cured, all remaining extruded cement was removed. The knee was placed through a range of motion with the trial insert to ensure appropriate range of motion and stability. Final range of motion was approximately 0 to 120 degrees. The knee was again thoroughly irrigated with pulsatile saline lavage. The final polyethylene insert was then impacted into place ensuring no retained soft tissues. The remaining periarticular joint injection was injected. A medium Hemovac drain was placed exiting superior laterally. The knee was then placed over a triangle and the arthrotomy was closed with interrupted #1 Vicryl after thoroughly irrigating the joint. The deep and subcutaneous tissues were closed with interrupted oh and 3-0 Vicryl respectively. Skin was closed with a running subcutaneous 3-0 Monocryl and Prineo Dermabond dressing. 4 x 4's, Sof-Rol, and a full leg Dustin wrap were applied. All sponge, needle, blade, and instrument counts were correct prior to closing the wounds. Postoperative condition: The patient was awoken and transferred to the postanesthesia care unit in stable condition. Plan is to be admitted to the inpatient medical/surgical floor postoperatively for 24 hours of IV antibiotics , physical therapy, occupational therapy, and medical comanagement. Patient will be weightbearing as tolerated with range of motion as tolerated. DVT prophylaxis will be with SCDs, TYRESE hose, and pharmacological anticoagulation. Anticipated hospital stay is approximately 2-4 days.
[2016-12-01] MEDS: KETOROLAC TROMETHAMINE 15 MG/ML VIAL IV SCH ×2 (12:14→17:02)
[2016-12-01] MEDS: ONDANSETRON HCL/PF 2 MG/ML VIAL IV PRN (12:15)
[2016-12-01] MEDS: oxyCODONE HCL/ACETAMINOPHEN 1 TAB TABLET PO PRN ×2 (12:19→20:12)
[2016-12-01] MEDS: ceFAZolin SODIUM 1 GM in DEXTROSE 5 % IN WATER 100 ML IV SCH ×4 (15:05→20:12)
--- NOTE | 2016-12-01 15:45 | OR ---
Anesthesia Procedure Note - Anesthesia Procedure Note Date of Service: 12/01/16 Narrative: Vital Signs - Last Taken Temp 36.6 C 12/01/16 13:07 Pulse 47 L 12/01/16 13:07 Resp 16 12/01/16 13:07 BP 143/61 12/01/16 13:07 Pulse Ox 97 12/01/16 13:07 O2 Oxygen Delivery Method Room Air 12/01/16 15:39 ANESTHESIA PROCEDURE NOTE Date of Procedure: 12/01/2016 Time of procedure: . Performed by: LARRY Hensley CRNA, MSN Picking Belt Operator: Lorena Reyes RN. Preprocedure diagnosis: Left total knee arthroplasty surgery. Post procedure diagnosis: Same. Procedure: Last Femoral nerve block. Indications: Post left total knee arthroplastic surgery pain relief. Findings: See below. Details of the procedure: The patient was brought to OR #4 and placed in the supine position. The patient was prepped with chlorhexidine and using ultrasound guidance the left femoral nerve and artery were identified and lidocaine 1% was infiltrated to the skin of the intended injection site. Under ultrasound guidance the femoral nerve was approached until a shoulder/arm response was identified on nerve stimulator. Once the stimulator response was effective at less than 0.5 mV and greater than 0.3 mV the femoral nerve was surrounded with 30 mL bupivacaine 0.5% with 1-200,000 epinephrine. Please see radiology/ultrasound report for details and images of the procedure. EBL: 0 Fluids: N/A. Specimen: N/A. Post procedure condition: The patient tolerated the procedure well. No complications were noted. Thank you for this consultation. Nabil Borja CRNA, ARNP, MSN
[2016-12-01] MEDS: metFORMIN HCL 500 MG TABLET PO SCH (17:02)
[2016-12-01] MEDS ORDERED: ALBUTEROL SULFATE 2.5 MG/3 ML VIAL.NEB IH SCH (17:30)
--- NOTE | 2016-12-01 17:37 | PN ---
Subjective - Date and Time Seen Date: 12/01/16 Time: 17:27 Subjective Narrative: Pt. has no complaints of dizziness, CP or N/V. states he hasn't shown any signs of memory or confusion issues. Objective - Review of Systems Generalized/Overall Review: Reports: No Symptoms Reported EENTM: Reports: No Symptoms Reported Respiratory: Reports: No Symptoms Reported Cardiac: Reports: No Symptoms Reported Abdominal: Reports: No Symptoms Reported Genitourinary Symptoms: Reports: No Symptoms Reported Musculoskeletal Complaints: Reports: Joint Pain Neurological: Reports: No Symptoms Reported Skin: Reports: No Symptoms Reported Endocrine: Reports: No Symptoms Reported - Vitals Vitals: Last Vital Signs Temp 36.6 C 12/01/16 13:07 Pulse 47 L 12/01/16 13:07 Resp 16 12/01/16 13:07 BP 143/61 12/01/16 13:07 Pulse Ox 97 12/01/16 13:07 - EKG/Xray Findings EKG: prolonged QT interval, other - bradycardia into 30's. - Exam Constitutional: Present: Alert, Oriented x3, Cooperative, No distress ENT Exam: Present: hearing grossly normal Neck: Present: supple Respiratory: Present: no respiratory distress, wheezing, expiration (prolonged) Cardiovascular/Chest: Present: bradycardia, systolic murmur Abdomen: Present: Normal bowel sounds, soft Extremity: Present: normal capillary refill Skin Exam: Present: normal color Neurologic: Present: normal mood/affect, oriented x 3 Appearance: Present: appropriate appearance, appropriate insight, no memory impairment Eye contact: Present: cooperative, good eye contact, normal speech Thoughts: Present: normal thought pattern, no apparent hallucination Cauti Physician Documentation - Urinary Catheter Management Urethral (Murphy) Urethral Indwelling: Yes Reason for Continuing Indwelling Catheter: Prolonged immobilization Date of Insertion: 12/01/16 Time of Insertion: 08:15 Assessment/Plan - Problems/Diagnosis (1) Bradycardia Problem: Acute Narrative: patient did during previous hospitalization but not to degree he is now. states that when he sleeps it is most noticeable. He is asymptomatic but definitely needs to be monitored. I don't see where any of his medications would be the cause of such. Will do breathing treatments on a scheduled basis for his current wheezing and see if this won't help speed up his heart rate some in the process. If he becomes symptomatic pacing vs. atropine vs. transfer may be needed. (2) Status post total left knee replacement Problem: Acute Narrative: rehab per ortho (3) COPD (chronic obstructive pulmonary disease) Problem: Chronic Qualifiers: COPD type: COPD with acute exacerbation Qualified Code(s): J44.1 - Chronic obstructive pulmonary disease with (acute) exacerbation Narrative: wheezing noted. mild exacerbation. will do scheduled nebs at least through the night and monitor sx in the am along with HR. Last hospitalization he responded well to such a regimen. 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 consider SSI. do consistant carb diet. (5) Hypertension Problem: Chronic Qualifiers: Hypertension type: essential hypertension Qualified Code(s): I10 - Essential (primary) hypertension Narrative: continue losartan and amlodipine unchanged. hold if SBP < 90, give half dose or consider holding if SBP < 100. (6) 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 Narrative: previously noted so will need monitoring and no medications that can cause further blockade. (7) Discharge planning issues Problem: Acute Narrative: discharge will be dependent on how quickly he rehabs and stability or improvement of current problems.
[2016-12-01] MEDS: BUDESONIDE 0.5 MG/2 ML VIAL.NEB IH SCH (18:05)
[2016-12-01] MEDS: ALBUTEROL SULFATE 2.5 MG/3 ML VIAL.NEB IH SCH ×2 (18:05→22:57)
[2016-12-01 19:44] LABS: Hemoglobin 11.6 gm/dL (13.5-18.0)
[2016-12-01] MEDS: DOCUSATE SODIUM 100 MG CAPSULE PO SCH (20:11)
[2016-12-01] MEDS: SENNOSIDES/DOCUSATE SODIUM 1 TAB TABLET PO SCH (20:11)
[2016-12-01] MEDS: MORPHINE SULFATE 15 MG TABLET.SA PO SCH (20:12)
[2016-12-02] MEDS: KETOROLAC TROMETHAMINE 15 MG/ML VIAL IV SCH ×5 (00:56→23:06)
[2016-12-02] MEDS: ALBUTEROL SULFATE 2.5 MG/3 ML VIAL.NEB IH SCH ×6 (02:12→22:28)
[2016-12-02] MEDS: ceFAZolin SODIUM 1 GM in DEXTROSE 5 % IN WATER 100 ML IV SCH ×2 (02:25)
[2016-12-02] MEDS: BUDESONIDE 0.5 MG/2 ML VIAL.NEB IH SCH ×2 (06:02→18:21)
[2016-12-02 06:09] LABS: Hematocrit 33.4 % (42.0-52.0); Hemoglobin 10.6 gm/dL (13.5-18.0); Mean Cell Volume 81.5 fl (78-100); Mean Corpuscular Hemoglobin 25.9 pg (27-31); Mean Corpuscular Hgb Conc 31.7 g/dl (32-36); Mean Platelet Volume 12.2 fl (6.0-9.5); Platelet Count 157 K/mm3 (150-450); Red Cell Distribution Width 16.4 % (11.5-14.0); White Blood Count 7.7 K/mm3 (4.0-10.5)
[2016-12-02 06:10] LABS: Anion Gap 11.9 mmol/L (6.8-13.8); BUN/Creatinine Ratio 12.7 (9.0-21.6); Carbon Dioxide 27.4 mmol/L (24-32.6); Estimated Creat Clear 76.2; Potassium 4.3 mmol/L (3.4-4.6)
--- NOTE | 2016-12-02 06:43 | PN ---
Subjective - Date and Time Seen Date: 12/02/16 Time: 06:31 Subjective Narrative: Pt. without complaint this am. Has knee pain when he moves it, otherwise pain is well controlled. He denies CP/SOB/dizziness or orthostatic sx. Sats dropped into the 80's last night but came up into the 90's on 2LNC. HR remains in the 40's without sx. He states he has never been tested for nocturnal hypoxia or ARIN. Objective - Review of Systems Generalized/Overall Review: Reports: No Symptoms Reported EENTM: Reports: No Symptoms Reported Respiratory: Reports: No Symptoms Reported Cardiac: Reports: No Symptoms Reported Abdominal: Reports: No Symptoms Reported Genitourinary Symptoms: Reports: No Symptoms Reported Musculoskeletal Complaints: Reports: Joint Pain Neurological: Reports: No Symptoms Reported Skin: Reports: No Symptoms Reported Endocrine: Reports: No Symptoms Reported - Vitals Vitals: Last Vital Signs Temp 36.6 C 12/01/16 23:15 Pulse 42 L 12/02/16 06:16 Resp 16 12/02/16 06:16 BP 121/61 12/01/16 23:15 Pulse Ox 99 12/02/16 06:04 - Abnormal Lab Findings Abnormal Lab Findings: Abnormal Lab Results 12/01/16 12/02/16 12/02/16 Range/Units 19:34 05:56 05:56 RBC 4.10 L (4.7-6.0) M/mm3 Hgb 11.6 L 10.6 L (13.5-18.0) gm/dL Hct 37.0 L 33.4 L (42.0-52.0) % MCH 25.9 L (27-31) pg MCHC 31.7 L (32-36) g/dl RDW 16.4 H (11.5-14.0) % MPV 12.2 H (6.0-9.5) fl Random Glucose 114 H (70-110) mg/dL - EKG/Xray Findings EKG: other - Wenkebach type 1, bradycardia - Exam Constitutional: Present: Alert, Oriented x3, Cooperative, No distress, Obese ENT Exam: Present: hearing grossly normal Neck: Present: supple Respiratory: Present: no respiratory distress, no accessory muscle use, No wheezing Cardiovascular/Chest: Present: bradycardia, systolic murmur Abdomen: Present: Normal bowel sounds, soft, nontender, nondistended, obese Extremity: Present: normal capillary refill Skin Exam: Present: normal color Neurologic: Present: normal mood/affect, oriented x 3 Appearance: Present: appropriate appearance, appropriate insight, neat, no memory impairment Eye contact: Present: cooperative, good eye contact, normal speech Thoughts: Present: normal thought pattern, no apparent hallucination Cauti Physician Documentation - Urinary Catheter Management Urethral (Murphy) Urethral Indwelling: Yes Reason for Continuing Indwelling Catheter: Surgical Procedure Date of Insertion: 12/01/16 Time of Insertion: 08:15 Assessment/Plan - Problems/Diagnosis (1) Bradycardia Problem: Acute Narrative: HR is better this am but still in the 40's. He is asymptomatic so will just monitor for now. Ok to continue telemetry for now. (2) Status post total left knee replacement Problem: Acute Narrative: rehab per ortho. (3) COPD (chronic obstructive pulmonary disease) Problem: Chronic Qualifiers: COPD type: COPD with acute exacerbation Qualified Code(s): J44.1 - Chronic obstructive pulmonary disease with (acute) exacerbation Narrative: still wheezing this am but is better. continue q4hrs neb tx. 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 no changes at this time in tx/diet. (5) Hypertension Problem: Chronic Qualifiers: Hypertension type: essential hypertension Qualified Code(s): I10 - Essential (primary) hypertension Narrative: BP's are stable. no changes needed. (6) 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 Narrative: stable no changes monitor for sx. (7) Discharge planning issues Problem: Acute Narrative: discharge when ambulating well and medically stable.
--- NOTE | 2016-12-02 08:06 | PN ---
Subjective - Date and Time Seen Date: 12/02/16 Time: 08:04 Subjective Narrative: Subjective: Reports no concerns this morning. He was noted at the bradycardic last night and workup by his medicine team revealed second-degree heart block but is otherwise asymptomatic at this time. Was able to get to the chair with therapy. Pain is well-controlled. Voiding without any complications. Tolerating by mouth intake. Denies any nausea or vomiting. Denies calf pain. Slept well. Physical exam: Alert and oriented to person, place and time Left lower Extremity: Palpable dorsalis pedis pulse. Sensation grossly intact to light touch. Dressings clean dry. Able to flex and extend ankle and toes. No excessive drainage. Calf and thigh are soft and nontender. Assessment: Postop day one status post left total knee arthroplasty. Plan: Continue with physical and occupational therapy weightbearing as tolerated. Continue with anticoagulation. 24 hours postoperative prophylactic antibiotics. Pain control with goal to rely on oral medications. Continue bowel regimen. Medicine to assist with medical treatments otherwise he is stable. Will need 6 weeks with walker or assitive device to protect joint while ambulating during the recovery process. Discharge planning. Discontinue drain and Murphy catheter. Repeat labs in a.m. Objective - Vitals Vitals: Last Vital Signs Temp 37 C 12/02/16 07:44 Pulse 54 L 12/02/16 07:44 Resp 20 12/02/16 07:44 BP 133/63 12/02/16 07:44 Pulse Ox 98 12/02/16 07:44 - Abnormal Lab Findings Abnormal Lab Findings: Abnormal Lab Results 12/01/16 12/02/16 12/02/16 Range/Units 19:34 05:56 05:56 RBC 4.10 L (4.7-6.0) M/mm3 Hgb 11.6 L 10.6 L (13.5-18.0) gm/dL Hct 37.0 L 33.4 L (42.0-52.0) % MCH 25.9 L (27-31) pg MCHC 31.7 L (32-36) g/dl RDW 16.4 H (11.5-14.0) % MPV 12.2 H (6.0-9.5) fl Random Glucose 114 H (70-110) mg/dL Cauti Physician Documentation - Urinary Catheter Management Urethral (Murphy) Urethral Indwelling: Yes Date of Insertion: 12/01/16 Time of Insertion: 08:15 Date of Removal: 12/02/16 Time of Removal: 07:20 Assessment/Plan - Problems/Diagnosis (1) Bradycardia Problem: Acute (2) Status post total left knee replacement Problem: Acute (3) Acute blood loss anemia Problem: Acute (4) COPD (chronic obstructive pulmonary disease) Problem: Chronic Qualifiers: COPD type: COPD with acute exacerbation Qualified Code(s): J44.1 - Chronic obstructive pulmonary disease with (acute) exacerbation (5) Diabetes Problem: Chronic Qualifiers: Diabetes mellitus type: type 2 Diabetes mellitus complication status: without complication Diabetes mellitus termite helper insulin use: with termite helper use Qualified Code(s): E11.9 - Type 2 diabetes mellitus without complications ; Z79.4 - emt intermediate (current) use of insulin (6) Hypertension Problem: Chronic Qualifiers: Hypertension type: essential hypertension Qualified Code(s): I10 - Essential (primary) hypertension (7) 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
[2016-12-02] MEDS: MORPHINE SULFATE 15 MG TABLET.SA PO SCH ×2 (08:25→20:20)
[2016-12-02] MEDS: metFORMIN HCL 500 MG TABLET PO SCH ×2 (08:26→17:47)
[2016-12-02] MEDS ORDERED: FLUTICASONE PROPIONATE 120 SPRAY INHALER NS SCH (09:00)
[2016-12-02] MEDS: amLODIPine BESYLATE 5 MG TABLET PO SCH (09:30)
[2016-12-02] MEDS: LOSARTAN POTASSIUM 50 MG TABLET PO SCH (09:31)
[2016-12-02] MEDS: FUROSEMIDE 40 MG TABLET PO SCH (09:31)
[2016-12-02] MEDS: PATIENT'S OWN MEDICATION 1 DOSE DOSE PO SCH (09:31)
[2016-12-02] MEDS: ENOXAPARIN SODIUM 40 MG/0.4 ML SYRG SC SCH (09:31)
[2016-12-02] MEDS: INSULIN REGULAR, HUMAN 100 UNITS/ML VIAL SC SCH ×3 (11:54→20:20)
[2016-12-02] MEDS: oxyCODONE HCL/ACETAMINOPHEN 1 TAB TABLET PO PRN (12:46)
[2016-12-02] MEDS: SENNOSIDES/DOCUSATE SODIUM 1 TAB TABLET PO SCH (20:20)
[2016-12-02] MEDS: FLUTICASONE PROPIONATE 120 SPRAY INHALER NS SCH (20:20)
[2016-12-02] MEDS: DOCUSATE SODIUM 100 MG CAPSULE PO SCH (20:20)
[2016-12-02] MEDS: ONDANSETRON HCL/PF 2 MG/ML VIAL IV PRN (22:22)
[2016-12-03] MEDS: ALBUTEROL SULFATE 2.5 MG/3 ML VIAL.NEB IH SCH ×3 (01:59→11:25)
[2016-12-03] MEDS: KETOROLAC TROMETHAMINE 15 MG/ML VIAL IV SCH (05:37)
[2016-12-03] MEDS: BUDESONIDE 0.5 MG/2 ML VIAL.NEB IH SCH (05:59)
[2016-12-03 06:01] LABS: Hematocrit 33.5 % (42.0-52.0); Hemoglobin 10.7 gm/dL (13.5-18.0); Mean Cell Volume 80.3 fl (78-100); Mean Corpuscular Hemoglobin 25.7 pg (27-31); Mean Corpuscular Hgb Conc 31.9 g/dl (32-36); Mean Platelet Volume 13.2 fl (6.0-9.5); Platelet Count 167 K/mm3 (150-450); Red Blood Count 4.17 M/mm3 (4.7-6.0); Red Cell Distribution Width 16.3 % (11.5-14.0)
[2016-12-03] MEDS: INSULIN REGULAR, HUMAN 100 UNITS/ML VIAL SC SCH ×2 (06:15→11:47)
[2016-12-03 06:18] LABS: BUN/Creatinine Ratio 13.5 (9.0-21.6); Calcium * 8.1 mg/dL (7.9-10.9); Carbon Dioxide 26.2 mmol/L (24-32.6); Estimated Creat Clear 87.3; Potassium 4.2 mmol/L (3.4-4.6)
[2016-12-03] MEDS: oxyCODONE HCL/ACETAMINOPHEN 1 TAB TABLET PO PRN (07:18)
[2016-12-03] MEDS: FUROSEMIDE 40 MG TABLET PO SCH (08:56)
[2016-12-03] MEDS: LOSARTAN POTASSIUM 50 MG TABLET PO SCH (08:56)
[2016-12-03] MEDS: FLUTICASONE PROPIONATE 120 SPRAY INHALER NS SCH (08:57)
[2016-12-03] MEDS: amLODIPine BESYLATE 5 MG TABLET PO SCH (08:57)
[2016-12-03] MEDS: metFORMIN HCL 500 MG TABLET PO SCH (08:57)
[2016-12-03] MEDS: PATIENT'S OWN MEDICATION 1 DOSE DOSE PO SCH (08:57)
[2016-12-03] MEDS: ENOXAPARIN SODIUM 40 MG/0.4 ML SYRG SC SCH (08:57)
[2016-12-03] MEDS: MORPHINE SULFATE 15 MG TABLET.SA PO SCH (09:06)
--- NOTE | 2016-12-03 10:27 | DS ---
(1) Bradycardia Problem: Acute (2) Status post total left knee replacement Problem: Acute (3) Acute blood loss anemia Problem: Acute (4) Discharge planning issues Problem: Acute (5) COPD (chronic obstructive pulmonary disease) Problem: Chronic Qualifiers: COPD type: COPD with acute exacerbation Qualified Code(s): J44.1 - Chronic obstructive pulmonary disease with (acute) exacerbation (6) Diabetes Problem: Chronic Qualifiers: Diabetes mellitus type: type 2 Diabetes mellitus complication status: without complication Diabetes mellitus terminal gauger supervisor insulin use: with terminal gauger supervisor use Qualified Code(s): E11.9 - Type 2 diabetes mellitus without complications ; Z79.4 - superintendent terminal (current) use of insulin (7) Hypertension Problem: Chronic Qualifiers: Hypertension type: essential hypertension Qualified Code(s): I10 - Essential (primary) hypertension (8) 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 Almanza was admitted to the floor after undergoing left total knee arthroplasty. Tolerated this well. Was admitted to the floor postoperatively for 24 hours of IV antibiotics, pain control, medical comanagement, and occupational and physical therapy. OT and PT were consulted to assist with activities of daily living and ambulation. Was made weightbearing as tolerated with range of motion as tolerated. Pain was initially controlled with IV regimen. This was transitioned to oral once tolerating a by mouth intake. Was resumed on home diet and medications. Had a Murphy catheter inserted and the operating room which was discontinued on postoperative day 1. A drain was placed intraoperatively into the knee which was discontinued on postoperative day 1. Lovenox SCD and TYRESE hose were utilized for DVT prophylaxis. Vital signs remained stable to the hospital course. Serial labs were obtained which showed a final hemoglobin of 10.7 grams. BMP was reviewed and was stable. Physical examination throughout the hospital course showed an extremity that had sensation that was intact to light touch, palpable pulses, a benign wound, motor intact to the toes, ankle, and knee. Knee range of motion was approximately 5 degrees to 80 degrees. Once an oral pain regimen was tolerated and physical therapy goals were met, it was felt that they were stable for discharge to home. Instructions: Continue with weightbearing as tolerated and range of motion as tolerated. It is OK to shower on the wound if it is not draining. If you note any drainage or for comfort you can cover with dry gauze and tape. Change every 2-3 days as needed. Continue with physical therapy. Resume home diet. Report any fever over 101.5 Fahrenheit, uncontrolled pain, increased drainage, foul odor of drainage, new or increased calf pain or shortness of breath, or any other significant complaints. A 325mg dialy aspirin will be started after finishing anticoagulation if not allergic. Continue with TYRESE hose on the operative extremity until instructed otherwise. No driving until instructed otherwise. Follow up in approximately 10-14 days. Procedures Performed: see notes below List Procedures: Left total knee arthroplasty Discharge Disposition: Home self care Disposition: Home self-care Condition: Good Discharge Activity: Activity as tolerated, Weight bearing Discharge Diet: Low salt Referrals: Berto Loja MD [Primary Care Provider] - Additional Patient Instructions (free text): Follow-up in the office with Dr. Sheets on 12/16/16@9:45am. Prescriptions (Any new or edited meds): Enoxaparin Sodium [Lovenox] 40 mg SC Q24H #7 disp.syrin Morphine Sulfate [Ms Contin] 15 mg PO Q12H #20 tablet.sa Sennosides/Docusate Sodium [Senokot-S] 2 tab PO HS #30 tablet oxyCODONE HCL/ACETAMINOPHEN [Percocet 5 MG/325 MG] 2 tab PO Q4H PRN #90 tablet PRN Reason: Moderate Pain Complete Home Medications List: Complete Home Medication List: Albuterol Sulfate [Ventolin Hfa] 2 puff IH Q4H PRN 06/05/12 Furosemide [Lasix] 40 mg PO DAILY 06/05/12 Losartan Potassium 100 mg PO DAILY 06/05/12 Mometasone Furoate [Asmanex] 1 puff IH HS 06/05/12 Oxymetazoline HCl [Afrin] 2 spray NS BID PRN 06/05/12 Amlodipine Besylate [Norvasc] 2.5 mg PO DAILY 06/13/16 Blood-Glucose Meter [Blood Glucose Monitoring] 1 each MC DAILY 06/13/16 Celecoxib [Celebrex] 200 mg PO BID 06/13/16 Fluticasone Propionate [Flonase Allergy Relief] 2 spray NS DAILY 06/13/16 metFORMIN HCL [Glucophage] 500 mg PO BIDWM 06/13/16 Docusate Sodium [Stool Softener] 100 mg PO HS 07/02/16 diphenhydrAMINE HCL [Benadryl] 25 mg PO Q6H PRN 07/02/16 Fexofenadine/Pseudoephedrine [Stacy-D 24 Hour Tablet] 1 each PO DAILY HYDROcodone/ACETAMINOPHEN [[place] 5-325] 1 - 2 tab PO Q8H PRN 11/10/16 oxyCODONE HCL/ACETAMINOPHEN [Percocet 5 MG/325 MG] 1 - 2 tab PO Q4H PRN Enoxaparin Sodium [Lovenox] 40 mg SC Q24H #7 disp.syrin 12/03/16 Morphine Sulfate [Ms Contin] 15 mg PO Q12H #20 tablet.sa 12/03/16 Sennosides/Docusate Sodium [Senokot-S] 2 tab PO HS #30 tablet 12/03/16 oxyCODONE HCL/ACETAMINOPHEN [Percocet 5 MG/325 MG] 2 tab PO Q4H PRN #90 tablet 12/03/16
[2016-12-03 12:15] VITALS: BP 119/44
--- NOTE | 2016-12-03 13:03 | PN ---
Subjective - Date and Time Seen Date: 12/03/16 Time: 12:54 Subjective Narrative: I am covering for Dr. Loja. Patient had Bradycardia , asymptomatic in the course of his hospitalization. He is off telemetry when I saw him as he is for discharge. Objective - Review of Systems Generalized/Overall Review: Denies: Weakness, Chills, Fever EENTM: Reports: No Symptoms Reported Respiratory: Denies: Cough, Shortness of Breath, Orthopnea Cardiac: Denies: Chest Pain, Edema, Palpitations Abdominal: Denies: Nausea, Vomiting Genitourinary Symptoms: Denies: Urgency, Frequency Musculoskeletal Complaints: Reports: Joint Pain Neurological: Reports: Other - no lightheadednees or dizziness or presyncopal attacks. - Vitals Vitals: Last Vital Signs Temp 36.5 C 12/03/16 11:30 Pulse 50 L 12/03/16 11:30 Resp 18 12/03/16 11:30 BP 119/44 12/03/16 11:30 Pulse Ox 97 12/03/16 11:30 - Abnormal Lab Findings Abnormal Lab Findings: Abnormal Lab Results 12/03/16 12/03/16 Range/Units 05:56 05:56 RBC 4.17 L (4.7-6.0) M/mm3 Hgb 10.7 L (13.5-18.0) gm/dL Hct 33.5 L (42.0-52.0) % MCH 25.7 L (27-31) pg MCHC 31.9 L (32-36) g/dl RDW 16.3 H (11.5-14.0) % MPV 13.2 H (6.0-9.5) fl Random Glucose 112 H (70-110) mg/dL - Exam Constitutional: Present: Alert, Oriented x3, Cooperative ENT Exam: Present: hearing grossly normal Neck: Present: supple Breasts: Present: Exam deferred Respiratory: Present: normal breath sounds, No rales, No wheezing Cardiovascular/Chest: Present: regular rate, rhythm, no JVD, no murmur, other - HR of 60 Abdomen: Present: Normal bowel sounds, soft, nontender, nondistended Extremity: Present: no pedal edema, no calf tenderness Cauti Physician Documentation - Urinary Catheter Management Urethral (Murphy) Urethral Indwelling: Yes Date of Insertion: 12/01/16 Time of Insertion: 08:15 Date of Removal: 12/02/16 Time of Removal: 07:20 Assessment/Plan - Problems/Diagnosis (1) Status post total left knee replacement Problem: Acute (2) Acute blood loss anemia Problem: Acute (3) COPD (chronic obstructive pulmonary disease) Problem: Chronic Qualifiers: COPD type: COPD with acute exacerbation Qualified Code(s): J44.1 - Chronic obstructive pulmonary disease with (acute) exacerbation (4) Hypertension Problem: Chronic Qualifiers: Hypertension type: essential hypertension Qualified Code(s): I10 - Essential (primary) hypertension (5) 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 Will make him follow up with Dr. Loja when he follows up with Ortho in 10 days. He knows that if he gets symtpomatic to return immediately or earlier.
== END 2016-12-03 13:51 | disposition home or self-care (01) | DRG 470 ==
LOC: MS 06:03
PROVIDERS: ADMIT Orthopaedic Surgery; ATTEND Orthopaedic Surgery
PROC: 0SRD0J9 Replacement of Left Knee Joint with Synthetic Substitute, Cemented, Open Approach (ICD-10-PCS; principal; 2016-12-01 08:00)
DX: M17.12 Unilateral primary osteoarthritis, left knee (principal); D62 Acute posthemorrhagic anemia; R00.1 Bradycardia, unspecified; E11.9 Type 2 diabetes mellitus without complications; E78.5 Hyperlipidemia, unspecified; I10 Essential (primary) hypertension; F17.210 Nicotine dependence, cigarettes, uncomplicated; Z79.82 Long term (current) use of aspirin; Z88.1 Allergy status to other antibiotic agents; Z79.4 Long term (current) use of insulin
CPT/HCPCS: 27447; 36415; 73560; 80048; 84484; 85014; 85018; 85027; 93005; 94640; 97110; 97116; 97161; 97165; 97535; J2405

== ENCOUNTER 2017-01-16 22:21 | Emergency (ER) | payer MEDICARE ==
[2017-01-16] MEDS ORDERED: ONDANSETRON HCL/PF 2 MG/ML VIAL IV ONE (22:53)
--- NOTE | 2017-01-16 22:58 | ERNOTE ---
Medical Problem HPI - Narrative Date of Service: 01/16/17 - General Chief Complaint: General Assessment Source: patient, family - Immun/Allergies/Home Medications Immunizations: IMMUNIZATION HX Immunizations Up to Date Yes History of Influenza Vaccine Yes Hx Pneumococcal Vaccination Yes Allergies/Adverse Reactions: Allergies Penicillins Allergy (Mild, Verified 01/16/17 23:00) Hives azithromycin [From Zithromax] Adverse Reaction (Intermediate, Verified 01/16/17 23:00) QT prolongation Home Medications: HOME MEDICATIONS Albuterol Sulfate [Ventolin HFA] 1 puff IH PRN PRN 01/16/17 [Last Taken Unknown] Amlodipine Besylate [Norvasc] 2.5 mg PO DAILY 01/16/17 [Last Taken Unknown] Aspirin 325 mg PO HS 01/16/17 [Last Taken Unknown] Celecoxib [Celebrex] 200 mg PO BID 01/16/17 [Last Taken Unknown] Docusate Sodium [Stool Softener] 100 mg PO HS 01/16/17 [Last Taken Unknown] Fexofenadine HCl 180 mg PO DAILY 01/16/17 [Last Taken Unknown] Fexofenadine HCl [Stacy Allergy] 180 mg PO DAILY 01/16/17 [Last Taken Unknown] Fluticasone Propionate [Flonase] 2 spray NS DAILY 01/16/17 [Last Taken Unknown] Furosemide [Lasix] 40 mg PO DAILY 01/16/17 [Last Taken Unknown] HYDROcodone/ACETAMINOPHEN [[place] 5-325] 1 tab PO Q4H PRN 01/16/17 [Last Taken Unknown] Losartan Potassium [Cozaar] 100 mg PO DAILY 01/16/17 [Last Taken Unknown] Mometasone Furoate [Asmanex] 2 puff IH PRN PRN 01/16/17 [Last Taken Unknown] Oxymetazoline HCl [Afrin Nasal [place]] 2 sprays NS BID PRN 01/16/17 [Last Taken Unknown] diphenhydrAMINE HCL [Benadryl] 25 mg PO Q6H PRN 01/16/17 [Last Taken Unknown] metFORMIN HCL [Glucophage] 500 mg PO BIDWM 01/16/17 [Last Taken Unknown] - History of Present History Narrative: This is a 72-year-old male who comes to the emergency department with several complaints. The patient states for the last 5 weeks he has been having progressive difficulty swallowing. About 3 weeks ago got so bad that he can no longer keep any solids down. Over the last couple of weeks and also progressed to liquids. Even if he drinks a half a cup of water a few minutes later he will regurgitate. He is able to swallow his saliva. The patient says that he has been talking to his doctor about this and actually is scheduled for a scope to be performed on Thursday. The patient came in this evening because he continues to feel very weak. The patient states that he is not sure that he could make it through the weekend. The patient says earlier this evening he had a bowel movement of a small amount "when he heard" which was quite dark. He said yesterday he had a tiny amount of dark brown but today it was black. Patient does have a history of a bleeding ulcer repaired I'm sorry treated 2 years ago. The patient denies any chest pain or shortness of breath. He does have generalized malaise and fatigue. Nausea but no vomiting. Patient denies any other complaints. Review of Systems - Review of Systems Constitutional: Present: weakness, fatigue, malaise EYE: Present: no symptoms reported ENT: Present: no symptoms reported Respiratory: Present: no symptoms reported Cardiology: Present: no symptoms reported Gastrointestinal/Abdominal: Present: See HPI, nausea, eating less, drinking less Genitourinary: Present: no symptoms reported Musculoskeletal: Present: no symptoms reported Skin: Present: no symptoms reported Neurological: Present: no symptoms reported Endocrine: Present: no symptoms reported Hematologic/Lymphatic: Present: no symptoms reported Psych: Present: no symptoms reported All Other Systems: All systems neg except as marked - Patient's Past Medical History Patient History - Medical: Arthritis, Diabetes Type 2 Patient History - Cardiac/Respiratory: Hypertension Patient History - Cancer: No Hx of Cancer Patient History - Surgical Procedures: Total Hip Replacement, Total Knee Replacement, Orthopedic Patient History - Other: None - Family History Mother Family History - Medical: Family History - Cardiac/Respiratory: History Unknown Family History - Cancer: No pertinent family hx Father Family History - Medical: Family History - Cardiac/Respiratory: History Unknown Family History - Cancer: No pertinent family hx Brother Family History - Medical: No pertinent hx Family History - Cardiac/Respiratory: History Unknown Family History - Cancer: No pertinent family hx - Social History Living Situations: home Abuse History: No History of abuse Psych History: No pertinent hx Smoking Status: Never smoker Alcohol Use: none Drug Use: none - Immunizations Immunizations Up to Date: Yes Hx Pneumococcal Vaccination: Yes History of Influenza Vaccine: Yes Physical Exam - Physical Exam General Appearance: Present: wd/wn, alert, no apparent distress, other - slightly pale Head Exam: Present: normal inspection, no evidence of injury Eye Exam: Normal inspection: bilateral, PERRL: bilateral, EOMI: bilateral Ears, Nose, Throat: Present: normal ENT inspection, normal pharynx. Absent: pharyngeal swelling, tonsillar exudate Neck: Present: normal inspection, nontender, supple. Absent: carotid bruit Respiratory: Present: no respiratory distress, normal breath sounds, no accessory muscle use, chest nontender, lungs clear Cardiovascular/Chest: Present: regular rate, rhythm, no murmur, other - borderline bradycardic right around 60 Gastrointestinal/Abdominal: Present: normal bowel sounds, nontender, nondistended, soft, no organomegaly, other - normoactive bowel sounds. No rebound or guarding. Absent: guarding, rebound Rectal Exam: Present: nontender, normal rectal tone, other - slightly enlarged prostate. Brown stool. Sent for Hemoccult. Back Exam: Present: normal inspection, normal range of motion, no CVA tenderness , no vertebral tenderness Extremity Exam: Present: normal inspection, non-tender, normal range of motion, no edema Neurological Exam: Present: alert, oriented, normal mood/affect, no motor/ sensory deficits, disoriented to situation Skin Exam: Present: normal color, warm/dry Lymphatic Exam: Present: no adenopathy ED Progress - Vital Signs Patient's Vital Signs:: I have reviewed the patient's vital signs. Vital Signs: Vital Signs 01/16/17 22:25 Temperature 36.2 C L Pulse Rate 68 Respiratory 18 Rate Blood Pressure 153/73 O2 Sat by Pulse 97 Oximetry - EKG EKG read: Interp. by me EKG Comments: EKG demonstrates atrial fibrillation with extremely low ventricular response. Ventricular rate of 37. There is definite T-wave flattening throughout. No definite acute ischemic changes. ST segments appear normal - X-Ray X-Ray #1 X-Ray: chest Interpretation: Interp. by me X-ray Comments: No significant interval change from June - CT/Ultrasound CT/Ultrasound Narrative: CT of the chest demonstrates some mild thickening of the distal esophagus could be due to collapse or possibly mild esophagitis. 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 He is primarily in the mid 30s to mid 40s. He has atrial fibrillation by history, but he is not on any negative chronotropic medicines. This is concerning to me. I cannot in good conscience allow a 72-year-old to go home with a heart rate in the 20s or 30s. Especially when we do not have any definite cause. Therefore I 'm going to admit the patient to the hospital. He will need to be on telemetry. He may be perfectly fine through the weekend. He is getting a scope on Thursday. I do not feel that he urgently needs to be transferred to an receiver for pacemaker placement I am hopeful that as he gets hydrated and whatever medicines he may have onboard wear off his heart rate will proved. He remains asymptomatic at rest. He has mild dizziness when standing up. Departure - Departure Clinical Impression: Symptomatic bradycardia Disposition: Other health care facility Condition: Stable Referrals: Berto Loja MD [Primary Care Provider] -
[2017-01-16 23:07] LABS: Hemoglobin 11.6 gm/dL (13.5-18.0); Mean Cell Volume 80.5 fl (78-100); Mean Corpuscular Hemoglobin 26.7 pg (27-31); Mean Corpuscular Hgb Conc 33.1 g/dl (32-36); Mean Platelet Volume 11.9 fl (6.0-9.5); Neutrophil # 6.1 K/mm3 (1.3-6.0); Neutrophil % 66.5 % (42-75.0); Platelet Count 186 K/mm3 (150-450); Red Blood Count 4.35 M/mm3 (4.7-6.0); Red Cell Distribution Width 17.9 % (11.5-14.0); White Blood Count 9.1 K/mm3 (4.0-10.5)
[2017-01-16] MEDS ORDERED: ONDANSETRON HCL/PF 2 MG/ML VIAL ONE (23:09)
[2017-01-16 23:17] LABS: INR 1.07 INR (0.90-1.10); Prothrombin Time (Patient) 11.1 Seconds (9.4-11.4)
[2017-01-16 23:25] LABS: ALT 36 U/L (19-67); AST 26 U/L (0-48); Albumin * 3.5 gm/dl (3.4-5.0); Alkaline Phosphatase * 87 U/L (50-170); Anion Gap 15.8 mmol/L (6.8-13.8); Bilirubin, Total 0.4 mg/dL (0.0-1.1); Blood Urea Nitrogen 22 mg/dL (6-23); Ca. Corrected For Albumin 9.3 mg/dL (8.4-10.2); Calcium * 9.2 mg/dL (7.9-10.9); Carbon Dioxide 24.9 mmol/L (24-32.6); Chloride 106 mmol/L (97-106); Glucose * 118 mg/dL (70-110); Lipase 66 U/L (73-393); Potassium 3.7 mmol/L (3.4-4.6); Sodium 143 mmol/L (132-142); Total Protein 6.8 gm/dL (6.2-8.2)
[2017-01-16 23:26] LABS: Troponin I Less than 0.017 ng/ml (0.00-0.10)
[2017-01-16] MEDS ORDERED: NORMAL SALINE 1,000 ML IV ONE (23:37)
[2017-01-17] MEDS ORDERED: ONDANSETRON HCL/PF 2 MG/ML VIAL IV ONE (00:49)
[2017-01-17] MEDS ORDERED: ONDANSETRON HCL/PF 2 MG/ML VIAL ONE (00:51)
[2017-01-17 03:33] VITALS: BP 126/56
== END 2017-01-17 03:17 | disposition short-term general hospital (02) ==
LOC: ER 22:21
DX: R00.1 Bradycardia, unspecified (principal); M19.90 Unspecified osteoarthritis, unspecified site; E11.9 Type 2 diabetes mellitus without complications; I10 Essential (primary) hypertension
CPT/HCPCS: 36415; 71020; 71250; 80053; 82272; 83690; 84484; 85025; 85610; 93005; 96374; 99285; J2405

== ENCOUNTER 2017-01-28 23:37 | Inpatient (IN) | payer MEDICARE ==
[2017-01-29 00:22] LABS: Mean Cell Volume 83.6 fl (78-100); Mean Corpuscular Hemoglobin 26.6 pg (27-31); Mean Corpuscular Hgb Conc 31.8 g/dl (32-36); Mean Platelet Volume 11.5 fl (6.0-9.5); NRBC# 0.1 k/mm3 (0-1); Neutrophil # 10.1 K/mm3 (1.3-6.0); Neutrophil % 83.2 % (42-75.0); Platelet Count 274 K/mm3 (150-450); Red Blood Count 2.14 M/mm3 (4.7-6.0); Red Cell Distribution Width 18.6 % (11.5-14.0); White Blood Count 12.2 K/mm3 (4.0-10.5)
[2017-01-29 00:24] LABS: Hematocrit 17.9 % (42.0-52.0); Hemoglobin 5.7 gm/dL (13.5-18.0)
--- NOTE | 2017-01-29 00:35 | ERNOTE ---
Dizziness ER Record Presenting Symptoms: dizziness Time Seen by Provider: 01/29/17 00:24 Source: patient Exam Limitations: no limitations Immunizations: IMMUNIZATION HX Immunizations Up to Date Yes History of Influenza Vaccine Yes Hx Pneumococcal Vaccination Yes Allergies/Adverse Reactions: Allergies Allergy/AdvReac Type Severity Reaction Status Date / Time Penicillins Allergy Mild Hives Verified 01/28/17 23:47 azithromycin [From Zithromax] AdvReac Intermediate QT Verified 01/28/17 23:47 prolongation Home Medications: HOME MEDICATIONS Albuterol Sulfate [Ventolin HFA] 1 puff IH PRN PRN 01/16/17 [Last Taken Unknown] Amlodipine Besylate [Norvasc] 2.5 mg PO DAILY 01/16/17 [Last Taken Unknown] Aspirin 325 mg PO HS 01/16/17 [Last Taken Unknown] Celecoxib [Celebrex] 200 mg PO BID 01/16/17 [Last Taken Unknown] Docusate Sodium [Stool Softener] 100 mg PO HS 01/16/17 [Last Taken Unknown] Fexofenadine HCl [Stacy Allergy] 180 mg PO DAILY 01/16/17 [Last Taken Unknown] Fluticasone Propionate [Flonase] 2 spray NS DAILY 01/16/17 [Last Taken Unknown] Furosemide [Lasix] 40 mg PO DAILY 01/16/17 [Last Taken Unknown] HYDROcodone/ACETAMINOPHEN [[place] 5-325] 1 tab PO Q4H PRN 01/16/17 [Last Taken Unknown] Losartan Potassium [Cozaar] 100 mg PO DAILY 01/16/17 [Last Taken Unknown] Mometasone Furoate [Asmanex] 2 puff IH PRN PRN 01/16/17 [Last Taken Unknown] Oxymetazoline HCl [Afrin Nasal [place]] 2 sprays NS BID PRN 01/16/17 [Last Taken Unknown] diphenhydrAMINE HCL [Benadryl] 25 mg PO Q6H PRN 01/16/17 [Last Taken Unknown] metFORMIN HCL [Glucophage] 500 mg PO BIDWM 01/16/17 [Last Taken Unknown] - History of Present Illness Narrative: Pt was diagnosed with esophageal cancer last week, he has had dark stools and increasing weakness since the EGD. Timing and Duration: gradual onset Severity: max: moderate Severity: currently: moderate Decreased ability to stand/walk:: Present: weak Modifying Factors - (Worsens): Reports: standing position Prior Treament: Reports: recently seen, treated by physician, recently hospitalized Review of Systems - Review of Systems Constitutional: Present: recent illness, fatigue. Absent: fever EYE: Present: no symptoms reported ENT: Present: sore throat - difficulty swallowing any solids Respiratory: Present: shortness of breath Cardiology: Absent: chest pain Gastrointestinal/Abdominal: Absent: nausea, vomiting Genitourinary: Present: no symptoms reported Musculoskeletal: Present: no symptoms reported Skin: Absent: rash Neurological: Present: no symptoms reported Endocrine: Present: no symptoms reported Hematologic/Lymphatic: Present: no symptoms reported Psych: Present: no symptoms reported - Patient's Past Medical History Patient History - Medical: Arthritis, Diabetes Type 2 Patient History - Cardiac/Respiratory: Arrhythmias, Hypertension Patient History - Cancer: Esophageal Patient History - Surgical Procedures: Total Hip Replacement, Total Knee Replacement, Orthopedic Patient History - Other: None - Family History Mother Family History - Medical: Family History - Cardiac/Respiratory: History Unknown Family History - Cancer: No pertinent family hx Father Family History - Medical: Family History - Cardiac/Respiratory: History Unknown Family History - Cancer: No pertinent family hx Brother Family History - Medical: No pertinent hx Family History - Cardiac/Respiratory: History Unknown Family History - Cancer: No pertinent family hx - Social History Living Situations: home Abuse History: No History of abuse Psych History: No pertinent hx Smoking Status: Former smoker Alcohol Use: none Drug Use: none - Immunizations Immunizations Up to Date: Yes Hx Pneumococcal Vaccination: Yes History of Influenza Vaccine: Yes Physical Exam - Physical Exam General Appearance: Present: wd/wn, alert, mild distress Head Exam: Present: normal inspection, no evidence of injury Eye Exam: Normal inspection: bilateral Ears, Nose, Throat: Present: normal ENT inspection Neck: Present: normal inspection, nontender Respiratory: Present: no respiratory distress, normal breath sounds, no accessory muscle use, lungs clear Cardiovascular/Chest: Present: regular rate, rhythm, no murmur, normal peripheral pulses Gastrointestinal/Abdominal: Present: normal bowel sounds, nontender, nondistended, soft Back Exam: Present: normal inspection, normal range of motion Extremity Exam: Present: normal inspection, no edema Neurological Exam: Present: alert, oriented, normal mood/affect Skin Exam: Present: normal color, warm/dry Lymphatic Exam: Present: no adenopathy ED Progress - Results and Orders Patient's Lab Results:: I have reviewed the patient's lab results. Results and Orders: Laboratory Tests 01/28/17 01/29/17 01/29/17 00:20 00:20 01:11 WBC 12.2 H Hgb 5.7 L* D Hct 17.9 L* D Plt Count 274 Neutrophils % 83.2 H Sodium 141 Potassium 3.7 Chloride 105 Carbon Dioxide 17.5 L BUN 25 H Creatinine 1.19 Random Glucose 170 H Calcium 8.0 Total Bilirubin 0.2 AST 25 ALT 32 Alkaline Phosphatase 75 Total Protein 5.7 L Albumin 2.8 L Amylase 22 L Lipase 81 Stool Occult Blood Positive H - Vital Signs Patient's Vital Signs:: I have reviewed the patient's vital signs. Vital Signs: Vital Signs 01/28/17 01/28/17 01/29/17 23:40 23:47 00:22 Temperature 36.6 C Pulse Rate 99 93 89 Respiratory 18 20 20 Rate Blood Pressure 113/63 114/56 103/53 O2 Sat by Pulse 99 99 98 Oximetry - X-Ray X-Ray #1 X-Ray: abdomen Interpretation: Interp. by me X-ray Comments: mild to moderate stool without evidence for obstruction - Progress/Reassessment Chief Complaint: Dizziness Progress Note-Subjective: 01/29/17 01:09 Spoke with Jeaneth JUAREZ hospitalist and she asked me to contact the surgeon poultry boner to make sure he would be comfortable with EGD or other diagnostic/ therapeutic procedures if the patient were to worsen. I spoke with Dr. Turner and he is comfortable with the admit and any procedures he may have to perform. I called Jeaneth back and she agrees with admit. Departure Clinical Impression: GI bleeding Qualifiers: GI bleed type/associated pathology: gastrointestinal hemorrhage with hematemesis Qualified Code(s): K92.0 - Hematemesis - Departure Disposition: [facility] Condition: Fair
[2017-01-29 00:36] LABS: Albumin * 2.8 gm/dl (3.4-5.0); Anion Gap 22.2 mmol/L (6.8-13.8); Bilirubin, Total 0.2 mg/dL (0.0-1.1); Ca. Corrected For Albumin 8.6 mg/dL (8.4-10.2); Carbon Dioxide 17.5 mmol/L (24-32.6); Potassium 3.7 mmol/L (3.4-4.6); Total Protein 5.7 gm/dL (6.2-8.2)
[2017-01-29] MEDS ORDERED: PANTOPRAZOLE SODIUM 80 MG in NORMAL SALINE 100 ML IV ONE (01:32)
--- NOTE | 2017-01-29 01:56 | HP ---
Chief Complaint - Chief Complaint Date of Service: 01/29/17 Time of Service: 01:50 Chief Complaint: " Weakness, Dizziness". Source of HPI-Pt; reliable, ERP report , pt's - Angela. History of Present Illness: Mr. Almanza is a 72-yr-old WM pt of Dr. Berto Loja with a PMH of: Asthma, CAD, DM II, HTN, HLD & PVD. History was mostly provided by pt's Spouse Emmy. She states that since Thursday01/25/17, Mr. Almanza has been getting progressively weaker. Tonight was the worst that he got and could not walk to the bathroom. She called the EMS and he was brought to the [facility] ER rather than [facility] due to the [facility] medicare policies, even though she preferred there as that is where his Oncologist is, following his newly diagnosed Esophageal Cancer. She reports that for the last 1 week, he has had black tarry stools. He had been dealing with swallowing difficulty for about 5 weeks and had lost about 50lbs as a result. His PCP had arranged for an endoscopy procedure at the [facility] on 01/19. However, he presented to the [facility] ED on with complaints of feeling weak and having dark stools. During evaluation at the ED on the visit, he was found to have episodes of severe Sinus Bradycardia going down into the 20s. For that reason, he was transferred to [facility] in [place], [place] as he was determined to be in need of a pacemaker/ defribilator. This was placed on 01/17. 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 He states that he has an upcoming visit with his Oncologist at the [facility] on 02/02 and that they have discussed options of treatment which will likely involve surgery, but that can only be done at the [facility]. During dimas' s evaluation at the ED, he was found to be anemic with H&H of 5.7/17.9. He denies having any hematemesis and hematochezia. He is not on any anticoagulants and has not taken any NSAIDs. He will be admitted under observation status telemetry monitoring and blood transfusion. - Patient's Past Medical History Patient History - Medical: Arthritis, Diabetes Type 2 Patient History - Cardiac/Respiratory: Arrhythmias, Hypertension Patient History - Cancer: Esophageal Patient History - Surgical Procedures: Pacemaker - 01/18/17, Total Hip Replacement, Total Knee Replacement, Orthopedic Patient History - Other: None - Family History Mother Family History - Medical: Family History - Cardiac/Respiratory: History Unknown Family History - Cancer: No pertinent family hx Father Family History - Medical: Family History - Cardiac/Respiratory: History Unknown Family History - Cancer: No pertinent family hx Brother Family History - Medical: No pertinent hx Family History - Cardiac/Respiratory: History Unknown Family History - Cancer: No pertinent family hx - Social History Living Situations: home Abuse History: No History of abuse Psych History: No pertinent hx Smoking Status: Former smoker Alcohol Use: none Drug Use: none - Immunizations Immunizations Up to Date: Yes Hx Pneumococcal Vaccination: Yes History of Influenza Vaccine: Yes Review Of Systems (GEN) - Review of Systems Generalized/Overall Review: Present: Weakness, Malaise, Weight loss. Absent: Chills, Fever EENTM: Absent: Eye Pain, Blurred Vision, Tearing, Double Vision Respiratory: Absent: Cough, Shortness of Breath, Orthopnea, Wheezing Cardiac: Absent: Chest Pain, Edema, Palpitations, Syncope Abdominal: Present: Abdominal Pain, Melena. Absent: Nausea, Vomiting, Hematemesis, Constipation, Diarrhea, Bright blood from rectum Genitourinary: Absent: Burning, Itching, Urgency, Frequency Musculoskeletal: Absent: Joint Pain, Back Pain, Joint Swelling Neurological: Absent: Headache, Anxiety, Depressed, Weakness Skin: Absent: Dryness, Lesions, Lumps Endocrine: Absent: Intolerance to Cold, Intolerance to Heat, Increased Hunger Immunizations: IMMUNIZATION HX Immunizations Up to Date Yes History of Influenza Vaccine Yes Hx Pneumococcal Vaccination Yes Allergies/Adverse Reactions: Allergies Allergy/AdvReac Type Severity Reaction Status Date / Time Penicillins Allergy Mild Hives Verified 01/28/17 23:47 azithromycin [From Zithromax] AdvReac Intermediate QT Verified 01/28/17 23:47 prolongation Home Medications: HOME MEDICATIONS Albuterol Sulfate [Ventolin HFA] 1 puff IH PRN PRN 01/16/17 [Last Taken Unknown] Amlodipine Besylate [Norvasc] 2.5 mg PO DAILY 01/16/17 [Last Taken Unknown] Celecoxib [Celebrex] 200 mg PO BID 01/16/17 [Last Taken Unknown] Docusate Sodium [Stool Softener] 100 mg PO HS 01/16/17 [Last Taken Unknown] Fexofenadine HCl [Stacy Allergy] 180 mg PO DAILY 01/16/17 [Last Taken Unknown] Fluticasone Propionate [Flonase] 2 spray NS DAILY 01/16/17 [Last Taken Unknown] Furosemide [Lasix] 40 mg PO DAILY 01/16/17 [Last Taken Unknown] HYDROcodone/ACETAMINOPHEN [[place] 5-325] 1 tab PO Q4H PRN 01/16/17 [Last Taken Unknown] Losartan Potassium [Cozaar] 100 mg PO DAILY 01/16/17 [Last Taken Unknown] Mometasone Furoate [Asmanex] 2 puff IH PRN PRN 01/16/17 [Last Taken Unknown] Oxymetazoline HCl [Afrin Nasal [place]] 2 sprays NS BID PRN 01/16/17 [Last Taken Unknown] RX: Aspirin 325 mg PO HS 01/16/17 [Last Taken Unknown] diphenhydrAMINE HCL [Benadryl] 25 mg PO Q6H PRN 01/16/17 [Last Taken Unknown] metFORMIN HCL [Glucophage] 500 mg PO BIDWM 01/16/17 [Last Taken Unknown] Exam - Exam Vital Signs: Vital Signs - Last Taken Temp 36.6 C 01/28/17 23:40 Pulse 101 H 01/29/17 01:38 Resp 20 01/29/17 01:38 BP 122/58 01/29/17 01:38 Pulse Ox 99 01/29/17 01:38 Constitutional: Present: Alert, Oriented x3, Cooperative, Mild distress ENT Exam: Present: normal ENT inspection, hearing grossly normal Eye Exam: bilateral eye: normal inspection, PERRL Neck: Present: full range of motion, supple, normal inspection Back Exam: Present: normal inspection, no CVA tenderness Breasts: Present: Exam deferred Respiratory: Present: lungs clear, No rales, No wheezing Cardiovascular/Chest: Present: normal peripheral pulses, regular rate, rhythm, no murmur Abdomen: Present: Normal bowel sounds, soft /Rectal: Present: Exam deferred Extremity: Present: normal range of motion, non-tender, normal inspection, no pedal edema Skin Exam: Present: cool/dry, pallor Lymphatic: Present: no adenopathy Neurologic: Present: no motor/sensory deficits, alert, normal mood/affect Appearance: Present: appropriate appearance, appropriate insight Eye contact: Present: cooperative, good eye contact, normal speech Thoughts: Present: normal thought pattern, no apparent hallucination Diagnostic Studies: Laboratory Results WBC 12.2 K/mm3 (4.0-10.5) H 01/28/17 00:20 RBC 2.14 M/mm3 (4.7-6.0) L 01/28/17 00:20 Hgb 5.7 gm/dL (13.5-18.0) L* D 01/28/17 00:20 Hct 17.9 % (42.0-52.0) L* D 01/28/17 00:20 MCV 83.6 fl (78-100) 01/28/17 00:20 MCH 26.6 pg (27-31) L 01/28/17 00:20 MCHC 31.8 g/dl (32-36) L 01/28/17 00:20 RDW 18.6 % (11.5-14.0) H 01/28/17 00:20 Plt Count 274 K/mm3 (150-450) 01/28/17 00:20 MPV 11.5 fl (6.0-9.5) H 01/28/17 00:20 Immature Gran % (Auto) 1.20 % (0.001-0.429) H 01/28/17 00:20 Immature Gran # (Auto) 0.15 K/mm3 (0.000-0.0310) H 01/28/17 00:20 Neutrophils % 83.2 % (42-75.0) H 01/28/17 00:20 Lymphocytes % 9.4 % (20-51) L 01/28/17 00:20 Monocytes % 5.3 % (0.0-9) 01/28/17 00:20 Eosinophils % 0.7 % (0.0-3.0) 01/28/17 00:20 Basophils % 0.2 % (0.0-1.0) 01/28/17 00:20 Nucleated RBC % 0.1 k/mm3 (0-1) 01/28/17 00:20 Neutrophils # 10.1 K/mm3 (1.3-6.0) H 01/28/17 00:20 Lymphocytes # 1.1 k/mm3 (1.5-3.5) L 01/28/17 00:20 Monocytes # 0.6 k/mm3 (0.0-1.0) 01/28/17 00:20 Eosinophils # 0.1 k/mm3 (0.0-0.7) 01/28/17 00:20 Absolute Basophils 0.0 k/mm3 (0.0-0.1) 01/28/17 00:20 Sodium 141 mmol/L (132-142) 01/29/17 00:20 Plasma Sodium 142 mmol/L (130-142) 01/29/17 00:20 Potassium 3.7 mmol/L (3.4-4.6) 01/29/17 00:20 Chloride 105 mmol/L (97-106) 01/29/17 00:20 Carbon Dioxide 17.5 mmol/L (24-32.6) L 01/29/17 00:20 Anion Gap 22.2 mmol/L (6.8-13.8) H 01/29/17 00:20 BUN 25 mg/dL (6-23) H 01/29/17 00:20 Creatinine 1.19 mg/dL (0.4-1.4) 01/29/17 00:20 Est GFR (Non-Af Amer) 64 mL/min (60-130) 01/29/17 00:20 BUN/Creatinine Ratio 21.0 (9.0-21.6) 01/29/17 00:20 Random Glucose 170 mg/dL (70-110) H 01/29/17 00:20 Calcium 8.0 mg/dL (7.9-10.9) 01/29/17 00:20 Calcium Adj for Albumin 8.6 mg/dL (8.4-10.2) 01/29/17 00:20 Total Bilirubin 0.2 mg/dL (0.0-1.1) 01/29/17 00:20 AST 25 U/L (0-48) 01/29/17 00:20 ALT 32 U/L (19-67) 01/29/17 00:20 Alkaline Phosphatase 75 U/L (50-170) 01/29/17 00:20 Total Protein 5.7 gm/dL (6.2-8.2) L 01/29/17 00:20 Albumin 2.8 gm/dl (3.4-5.0) L 01/29/17 00:20 Amylase 22 U/L (25-115) L 01/29/17 00:20 Lipase 81 U/L (73-393) 01/29/17 00:20 Stool Occult Blood Positive H 01/29/17 01:11 Blood Type O Negative 01/29/17 00:40 Antibody Screen Negative 01/29/17 00:40 Crossmatch See Detail 01/29/17 00:40 Assessment/Plan - Assessment/Plan (1) GI bleeding Assessment: Will admit for supportive cares with IVF, Protonix gtt, and transfuse 3 units of PRBC. In the event of active bleeding, pt and spouse prefer to be transferred to the [facility] as there were tentative plans for surgery of the newly diagnosed Esophageal Adenocarcinoma. will plan to discharge of if hgb stays stable and if no signs of active blood loss. Will monitor serial H&Hs q 6h. Problem: Acute (2) Status post cardiac pacemaker procedure Assessment: Stable- Place on Telemetry monitoring. Problem: Acute (3) Diabetes Assessment: Accu checks Q 6h while NPO. Hold metfomin while NPO and will start IVF with Dextrose. Problem: Chronic Qualifiers: Diabetes mellitus type: type 2 Diabetes mellitus complication status: without complication Diabetes mellitus detention insulin use: with detention use Qualified Code(s): E11.9 - Type 2 diabetes mellitus without complications ; Z79.4 - group home (current) use of insulin (4) Hypertension Problem: Chronic Qualifiers: Hypertension type: essential hypertension Qualified Code(s): I10 - Essential (primary) hypertension
[2017-01-29] MEDS ORDERED: PANTOPRAZOLE SODIUM 80 MG in NORMAL SALINE 100 ML IV SCH (02:00)
[2017-01-29] MEDS ORDERED: diphenhydrAMINE HCL 50 MG/ML VIAL ONE ×2 (02:24→19:16)
[2017-01-29] MEDS ORDERED: ACETAMINOPHEN 325 MG TABLET ONE ×2 (02:24→19:16)
[2017-01-29] MEDS: diphenhydrAMINE HCL 50 MG/ML VIAL IV ONE ×2 (02:40→19:22)
[2017-01-29] MEDS ORDERED: ACETAMINOPHEN 160 MG/5 ML BTL PO ONE (02:43)
[2017-01-29] MEDS: ACETAMINOPHEN 325 MG TABLET PO ONE ×2 (02:46→19:21)
[2017-01-29] MEDS ORDERED: FLU VACC QS2017-18(6MOS UP)/PF 60 MCG/0.5 ML SYRINGE IM ONE (09:00)
[2017-01-29 15:24] LABS: Hematocrit 24.4 % (42.0-52.0)
[2017-01-29] MEDS ORDERED: diphenhydrAMINE HCL 50 MG/ML VIAL IV SCH (16:26)
[2017-01-29] MEDS ORDERED: ACETAMINOPHEN 325 MG TABLET PO SCH (16:26)
[2017-01-29] MEDS ORDERED: ALBUTEROL SULFATE 2.5 MG/0.5 ML VIAL.NEB IH PRN (21:30)
[2017-01-30 06:02] LABS: Hematocrit 24.8 % (42.0-52.0); Hemoglobin 8.2 gm/dL (13.5-18.0); Mean Cell Volume 85.5 fl (78-100); Mean Corpuscular Hemoglobin 28.3 pg (27-31); Mean Corpuscular Hgb Conc 33.1 g/dl (32-36); NRBC# 0.1 k/mm3 (0-1); Neutrophil # 4.7 K/mm3 (1.3-6.0); Neutrophil % 63.4 % (42-75.0); Platelet Count 226 K/mm3 (150-450); Red Cell Distribution Width 16.7 % (11.5-14.0); White Blood Count 7.5 K/mm3 (4.0-10.5)
--- NOTE | 2017-01-30 07:13 | PN ---
Subjective - Date and Time Seen Date: 01/30/17 Time: 06:54 Subjective Narrative: Pt. without complaint this am. No dizziness with sitting up. Denies any dysphagia, hematemesis, hematochezia and denies any melena since late yesterday afternoon. Pt. received his fourth unit of blood last pm, finishing at around midnight, with 6hr Post transfusion Hb showing 8.2. He was 8.0 after 3 units yesterday, with 5.7 Hb on admission. His ASA has been held, but no FFP given due to him recently receiving a pacemaker and concerns for clotting the pacemaker off, causing additional issues. Objective - Review of Systems Generalized/Overall Review: Reports: No Symptoms Reported EENTM: Reports: No Symptoms Reported Respiratory: Reports: Cough, Shortness of Breath Cardiac: Reports: No Symptoms Reported Abdominal: Reports: No Symptoms Reported, Melena - none since last pm Genitourinary Symptoms: Reports: No Symptoms Reported Musculoskeletal Complaints: Reports: No Symptoms Reported Neurological: Reports: No Symptoms Reported Skin: Reports: No Symptoms Reported Endocrine: Reports: No Symptoms Reported - Vitals Vitals: Last Vital Signs Temp 36.9 C 01/30/17 02:30 Pulse 60 01/30/17 02:30 Resp 18 01/30/17 02:30 BP 136/72 01/30/17 02:30 Pulse Ox 98 01/30/17 02:30 - Abnormal Lab Findings Abnormal Lab Findings: Abnormal Lab Results 01/29/17 01/30/17 Range/Units 15:15 05:56 RBC 2.90 L (4.7-6.0) M/mm3 Hgb 8.0 L 8.2 L (13.5-18.0) gm/dL Hct 24.4 L 24.8 L (42.0-52.0) % RDW 16.7 H (11.5-14.0) % MPV 11.0 H (6.0-9.5) fl Immature Gran % (Auto) 0.70 H (0.001-0.429) % Immature Gran # (Auto) 0.05 H (0.000-0.0310) K/mm3 Eosinophils % 5.0 H (0.0-3.0) % - EKG/Xray Findings EKG: other - paced rhythm rate in the 70's. - Exam Constitutional: Present: Alert, Oriented x3, Cooperative, No distress, Overweight ENT Exam: Present: normal ENT inspection, hearing grossly normal Neck: Present: supple Respiratory: Present: wheezing, expiration (prolonged) Cardiovascular/Chest: Present: regular rate, rhythm - occ. ectopy Abdomen: Present: Normal bowel sounds, soft, nontender, nondistended, no rebound tenderness, no hepatospenomegaly Extremity: Present: no pedal edema, no calf tenderness Skin Exam: Present: normal color Neurologic: Present: normal mood/affect, oriented x 3 Appearance: Present: appropriate appearance, appropriate insight, neat Eye contact: Present: cooperative, good eye contact, normal speech Thoughts: Present: normal thought pattern, no apparent hallucination Assessment/Plan - Problems/Diagnosis (1) Esophageal cancer Problem: Acute Qualifiers: Malignant neoplasm of esophagus location: unspecified location Qualified Code(s): C15.9 - Malignant neoplasm of esophagus, unspecified Narrative: most likely the cause of his bleeding. No FFP given due to pacemaker placement and clotting concerns. ASA was held. Pt. kept on a liquid diet in order to determine if he could go home on such a diet or if need for further interventions would be necessary. (2) GI bleeding Problem: Acute Qualifiers: GI bleed type/associated pathology: melena Qualified Code(s): K92.1 - Melena Narrative: most likely from Esophageal cancer. (3) Status post cardiac pacemaker procedure Problem: Acute Narrative: was placed on 325mg ASA post placement, this is currently being held. (4) Acute blood loss anemia Problem: Acute Narrative: initial Hb was 5.7, he is now 8.2 s/p 4 units PRBC's. No further melonic stools since last pm, but still would be concerned about him still bleeding. Will contact [facility] for possible transfer and further interventions that might be needed in regards to the bleed/cancer. (5) Discharge planning issues Problem: Acute Narrative: due to continued low Hb, despite PRBC x 4, believe further interventions are needed and [facility] is more appropriate place for him to be given surgical specialists, oncology and possible ICU needs. Will contact them.
[2017-01-30] MEDS ORDERED: ALBUTEROL SULFATE 2.5 MG/0.5 ML VIAL.NEB IH PRN (08:15)
[2017-01-30] MEDS: ALBUTEROL SULFATE/IPRATROPIUM 3 ML NEBU IH SCH ×5 (08:43→22:29)
[2017-01-30 10:05] LABS: Hematocrit 29.4 % (42.0-52.0); Hemoglobin 9.7 gm/dL (13.5-18.0)
[2017-01-30] MEDS ORDERED: LOSARTAN POTASSIUM 50 MG TABLET PO SCH (13:00)
[2017-01-30] MEDS: PANTOPRAZOLE SODIUM 40 MG TABLET.EC PO SCH (13:15)
[2017-01-30 14:19] LABS: Hematocrit 27.3 % (42.0-52.0); Hemoglobin 8.8 gm/dL (13.5-18.0)
[2017-01-30 16:18] LABS: Hematocrit 28.1 % (42.0-52.0); Hemoglobin 9.1 gm/dL (13.5-18.0)
--- NOTE | 2017-01-30 17:27 | PN ---
Progess Note - Interim Narrative: 01/30/17 17:21 Pt. and family concerned by Hb going from 9.7 to 8.8, but repeat was 9.1. Sanford states he does feel some ESTES, lightheadeness, but nothing severe. He had one BM today which was more formed than previous BM's, but still black. He denies hematochezia or hematemesis. Discussion with pt. and daughter, I explained to them that the stability of the last two numbers shows the bleeding has stopped or slowed down to minimal bleeding. It is not an emergent situation at this time and to transfer to [facility] would most likely result in them watching and waiting like we can do here. If bleeding resumes we can then reconsider transfer, but even then they shouldn't necessarily expect an emergent resection of the tumor, it may be more cautery and stablizing the bleeding. They are fine staying the night here with repeat H/H in the am. Consider transfer tonight if bleeding resumes and Hb drops > 1.5 pts. but this should be balanced by BP, HR and physical sx. Pt. was alert and sitting on edge of bed in no distress at time of visit.
[2017-01-31] MEDS: ALBUTEROL SULFATE/IPRATROPIUM 3 ML NEBU IH SCH ×5 (02:43→18:11)
[2017-01-31 05:59] LABS: Hematocrit 23.4 % (42.0-52.0); Hemoglobin 7.5 gm/dL (13.5-18.0)
[2017-01-31] MEDS: PANTOPRAZOLE SODIUM 40 MG TABLET.EC PO SCH (07:00)
--- NOTE | 2017-01-31 07:26 | DS ---
Transfer Discharge Summary - Diagnosis(s)/Problems (1) Esophageal cancer Problem: Acute (2) GI bleeding Problem: Acute (3) Status post cardiac pacemaker procedure Problem: Acute (4) Acute blood loss anemia Problem: Acute (5) Discharge planning issues Problem: Acute - Course Description of Stay: Pt. with recent dx of esophageal cancer, with biopsy and dilation of the tumor just over a week ago, was admitted early am on the with Hb of 5.7. He was very symptomatic, but was alert and had history of mulitple black tarry stools daily for over one week, but sx worsened (increasing to as many as 5/day) the day prior to admission. He was transfused 3 units of PRBC'S with a 2 hr post transfusion Hb of 8.0. An additional unit was given with Hb shown to be 8.2 ( 6hrs post transfusion). repeat Hb in a 4 hrs was 9.7, then 4 hrs later was 8.8 , 2hrs later 9.1. This am he was down to 7.5, though was not having multiple black tarry stools overnight. 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 He was placed on ASA 325mg post procedure. This ASA was held as well as his celebrex and was placed on protonix. No FFP given due to the recent placemaker and concerns for clotting issues with this should it be given. No EGD was done as local surgeon was concerned about disrupting things and us not having capabilities here to handle any complications from an EGD. It was hoped stopping the ASA would be enough to allow the body to "heal itself". He was allowed a full liquid diet during this time as we had to be sure that he could maintain hydration outpt. should things stabilize and patient was discharged home. Pt. currently is in no distress. He is stable with BP's in the 110's (normally is on BP meds and runs in the 130's-140's, meds were held initially and losartan restarted yesterday when he climbed into the 140's but will be held today). He is alert and oriented and sitting up without any significant complaints. Issues are if he continues to bleed we won't have the means to intervene here and a more definitive treatment may be necessary that we don't have capabilities for here. Appreciate [facility] help in this matter. It is nice to have their support in such matters. Pt. also has the following: DM2: sugars have been in the low 100's without any meds HTN: meds held today due to sbp's running in the 110's. Usually takes losartan 100mg and amlodipine 2.5mg daily. Pacemaker placement: 01/18/17: was just on 325mg ASA for this. Arthritis: was on celebrex which was held. COPD: had duoneb started Q4hrs awake due to wheezing and E>>I, but no respiratory distress. Pt. was stable, alert and oriented sitting up in bed at time of transfer. Had one unit transfused this am and a second unit will be started prior to transport arrival. Procedures Performed: none - Results and Findings Results and Findings: Laboratory Results - last 24 hr 01/30/17 01/30/17 01/30/17 09:58 14:15 16:15 Hgb 9.7 L 8.8 L 9.1 L Hct 29.4 L 27.3 L 28.1 L 01/31/17 05:30 Hgb 7.5 L* Hct 23.4 L* - Medications Medications: Active Medications Albuterol/Ipratropium (Duoneb 2.5-0.5mg/3ml Soln) 3 ml IH Q4HRT [facility] Stop: 03/01/17 08:01 Last Admin: 01/31/17 06:12 Dose: 3 ml Losartan Potassium (Cozaar) 100 mg PO DAILY [facility] Stop: 03/01/17 13:01 Last Admin: 01/30/17 13:14 Dose: 100 mg Pantoprazole Sodium (Protonix) 40 mg PO DAILY@0700 ASHOK Stop: 03/01/17 13:01 Last Admin: 01/31/17 07:00 Dose: 40 mg Discontinued Medications Acetaminophen (Tylenol) 650 mg PO ONCE ONE Stop: 01/29/17 00:54 Last Admin: 01/29/17 19:21 Dose: 650 mg Acetaminophen (Tylenol 160 Mg/5 Ml Liquid) 650 mg PO ONCE ONE Stop: 01/29/17 02:44 Last Admin: 01/29/17 02:46 Dose: 650 mg Diphenhydramine HCl (Benadryl) 25 mg IV ONCE ONE Stop: 01/29/17 00:54 Last Admin: 01/29/17 19:22 Dose: 25 mg Pantoprazole Sodium 80 mg/ (Sodium Chloride) 100 mls @ 400 mls/hr IV ONCE ONE Stop: 01/29/17 01:46 Last Infusion: 01/29/17 02:36 Dose: Infused Pantoprazole Sodium 80 mg/ (Sodium Chloride) 100 mls @ 10 mls/hr IV TITR ASHOK Stop: 02/28/17 02:01 Last Admin: 01/29/17 03:44 Dose: 10 mls/hr Influenza Virus Vaccine Quadrival (Flulaval Quad [id number] Syringe) 60 mcg IM .ONCE ONE Stop: 01/29/17 09:01 Last Admin: 01/29/17 09:06 Dose: 60 mcg - Disposition Disposition: [facility] Condition: Fair Discharge Date: 01/31/17 Discharge Time: 11:30
[2017-01-31 15:42] LABS: Hematocrit 32.4 % (42.0-52.0); Hemoglobin 10.6 gm/dL (13.5-18.0)
[2017-01-31 17:13] VITALS: BP 125/55
== END 2017-01-31 20:30 | disposition short-term general hospital (02) | DRG 378 ==
LOC: ER 23:37 → MS 01-29 01:14 → INTOOBSV 01-29 01:14 → OBSVTOIN 01-30 09:20
PROVIDERS: ADMIT Nurse Practitioner; ATTEND Family Medicine
PROC: 30263N1 (ICD-10-PCS; principal; 2017-01-29)
DX: K92.2 Gastrointestinal hemorrhage, unspecified (principal); C15.9 Malignant neoplasm of esophagus, unspecified; D62 Acute posthemorrhagic anemia; R55 Syncope and collapse; I10 Essential (primary) hypertension; E11.9 Type 2 diabetes mellitus without complications; Z95.0 Presence of cardiac pacemaker; Z23 Encounter for immunization
CPT/HCPCS: 36415; 74020; 80053; 82150; 82272; 83690; 85014; 85018; 85025; 86850; 86900; 90686; 93005; 94640; 96374; 99285; G0008; G0378; P9016